=== PATIENT | female | born 1950 | race Caucasian/White ===

== ENCOUNTER → 2016-03-16 | Outpatient (CLI) | payer BC ==
[~2016-03-16] MED LIST: CHOLTAB3 PO; IBUP-1050 PO; PRED-301 PO
[2016-03-16 13:45] LABS: BLOOD UREA NITROGEN 19 mg/dl (7-18); BUN/CREATININE RATIO 19.5 (10-20); CALCIUM 9.4 mg/dl (8.5-10.1); CARBON DIOXIDE 31 mmol/L (21-32); CHLORIDE 101 mmol/L (98-107); CHOLESTEROL 247 mg/dl (0-200); CREATININE 0.95 mg/dl (0.60-1.20); GLUCOSE 101 mg/dl (70-99); POTASSIUM 3.7 mmol/L (3.5-5.1); SODIUM 141 mmol/L (136-145); TRIGLYCERIDES 152 mg/dl (0-150); VERY LOW DENSITY LIPOPROT CALC 30 mg/dl
[2016-03-16 13:48] LABS: CHOLESTEROL/HDL RATIO 3.5; HDL CHOLESTEROL 70 mg/dl; LDL CHOLESTEROL CALCULATED 147 mg/dl
== END | disposition home or self-care (01) ==
LOC: C.LABBC 11:36
PROVIDERS: ATTEND Family Medicine
DX: E78.00 Pure hypercholesterolemia, unspecified (principal); I10 Essential (primary) hypertension; R74.8 Abnormal levels of other serum enzymes; N18.3 Chronic kidney disease, stage 3 (moderate)

== ENCOUNTER → 2016-07-19 | Outpatient (CLI) | payer BC ==
[2016-07-19 13:52] LABS: ALT/SGPT 60 U/L (12-78); AST/SGOT 33 U/L (15-37); CREATININE 0.99 mg/dl (0.60-1.20)
[2016-07-19 13:55] LABS: ALKALINE PHOSPHATASE 74 U/L (45-117)
== END | disposition home or self-care (01) ==
LOC: C.LABBC 11:05
PROVIDERS: ATTEND Internal Medicine
DX: M33.20 Polymyositis, organ involvement unspecified (principal); Z79.1 Long term (current) use of non-steroidal anti-inflammatories (NSAID)

== ENCOUNTER → 2016-11-25 | Outpatient (CLI) | payer BC ==
--- NOTE | 2016-11-26 13:43 | MAMMOGRAPHY REPORT ---
BILATERAL DIGITAL SCREENING MAMMOGRAM TOMOSYNTHESIS WITH CAD: 11/25/2016 CLINICAL HISTORY: Routine screening. Patient has no complaints. TECHNIQUE: Breast tomosynthesis in addition to standard 2D mammography was performed. Current study was also evaluated with a Computer Aided Detection (CAD) system. COMPARISON: Comparison is made to exams dated: 11/19/2015 mammogram, 10/30/2014 mammogram, 10/29/2013 mammogram, 09/28/2012 mammogram, 08/04/2011 mammogram, and 07/30/2010 mammogram - [facility]. BREAST COMPOSITION: There are scattered areas of fibroglandular density in both breasts. FINDINGS: No suspicious masses, calcifications, or areas of architectural distortion are noted in ei ther breast. There has been no significant interval change compared to prior exams. Bilateral benign -appearing asymmetries/masses are stable compared to prior exams. Scattered bilateral benign-appeari ng calcifications are also stable. IMPRESSION: ACR BI-RADS CATEGORY 2: BENIGN There is no mammographic evidence of malignancy. A 1 year screening mammogram is recommended. The pa tient will receive written notification of the results. Approximately 10% of breast cancers are not detected with mammography. A negative mammographic report should not delay biopsy if a clinically suggestive mass is present. Lizzy Kwong M.D. /:11/25/2016 15:16:32 Apprentice Painter Hand: Radhika Guerra, [facility] letter sent: Normal 1/2 BI-RADS Code: ACR BI-RADS Category 2: Benign
== END | disposition home or self-care (01) ==
LOC: C.MAMM 14:50
PROVIDERS: ATTEND Family Medicine
DX: Z12.31 Encounter for screening mammogram for malignant neoplasm of breast (principal)

== ENCOUNTER → 2017-03-24 | Outpatient (CLI) | payer BC ==
[2017-03-24 14:12] LABS: BLOOD UREA NITROGEN 21 mg/dl (7-18); CALCIUM 9.6 mg/dl (8.5-10.1); CARBON DIOXIDE 31 mmol/L (21-32); CREATININE 1.03 mg/dl (0.60-1.20); GLUCOSE 114 mg/dl (70-99); POTASSIUM 3.6 mmol/L (3.5-5.1); SODIUM 139 mmol/L (136-145)
[2017-03-24 14:18] LABS: CHOLESTEROL 245 mg/dl (0-200); LDL CHOLESTEROL CALCULATED 143 mg/dl
== END | disposition home or self-care (01) ==
LOC: C.LABBC 10:37
PROVIDERS: ATTEND Family Medicine
DX: E78.00 Pure hypercholesterolemia, unspecified (principal); I12.9 Hypertensive chronic kidney disease with stage 1 through stage 4 chronic kidney disease, or unspecified chronic kidney disease; N18.3 Chronic kidney disease, stage 3 (moderate)

== ENCOUNTER 2017-05-19 05:26 | Inpatient (IN) | payer BC, OTHER ==
[2017-04-19 13:21] VITALS: BMI 31.0
--- NOTE | 2017-04-19 14:10 | PAT Medication Instructions ---
Service Date Apr 19, 2017. Current Home Medication List Acetaminophen (Tylenol), 1,000 MG PO PRN Amlodipine (Norvasc), 5 MG PO QAM Aspirin (Aspirin Ec), 81 MG PO QAM Cholecalciferol (Vitamin D3), 5,000 TAB PO QAM Meloxicam (Mobic), 15 MG PO QAM Prednisone (Prednisone), 5 MG PO QAM Triamterene/Hctz (Dyazide 37.5MG/25MG), 1 TAB PO QAM Medication Instructions For Your Scheduled Surgery - Hold the following medications 7 days prior to surgery per your surgeon's instructions: Meloxicam (Mobic), 15 MG PO QAM - Hold the following medications the morning of surgery: Cholecalciferol (Vitamin D3), 5,000 TAB PO QAM Triamterene/Hctz (Dyazide 37.5MG/25MG), 1 TAB PO QAM - Take the following medications the morning of surgery with a sip of water: Acetaminophen (Tylenol), 1,000 MG PO PRN (if needed, can be taken up to four hours before surgery) Amlodipine (Norvasc), 5 MG PO QAM Aspirin (Aspirin Ec), 81 MG PO QAM Prednisone (Prednisone), 5 MG PO QAM - Take the following medications as scheduled the night before surgery: Acetaminophen (Tylenol), 1,000 MG PO PRN (if needed) If you have any questions please call us at [phone] or [phone] or [phone]
--- NOTE | 2017-04-19 15:14 | DIAGNOSTIC IMAGING REPORT ---
CHEST 2 VIEWS ROUTINE HISTORY: 66 years-old Female PAT preoperative exam. No acute chest complaints COMPARISON: Chest CT 01/08/2009 TECHNIQUE: PA and lateral views of the chest FINDINGS: Cardiomediastinal and hilar silhouettes are within normal limits. Atherosclerosis of the aorta. There is no pneumothorax, pleural effusion, focal airspace consolidation or overt pulmonary edema. The bones of the chest appear grossly intact. Degenerative changes are seen within the shoulders and spine. IMPRESSION: No acute process. The above report was generated using voice recognition software. It may contain grammatical, syntax or spelling errors. Electronically signed by: Gideon Da Silva M.D. 04/19/2017 3:13 PM Dictated Date/Time: 04/19/2017 3:12 PM
[2017-04-19 15:20] LABS: BASO % 0.3 %; BASO ABS # 0.03 K/uL (0-0.2); EOS % 0.9 %; EOS ABS # 0.08 K/uL (0-0.5); HEMATOCRIT 38.3 % (37-47); HEMOGLOBIN 13.3 g/dL (12.0-16.0); IG# 0.02 K/uL (0.00-0.02); LYMPH % 15.8 %; LYMPH ABS # 1.39 K/uL (1.2-3.4); MEAN CELL VOLUME 97.7 fL (80-100); MEAN CORPUSCULAR HEMOGLOBIN 33.9 pg (25-34); MEAN CORPUSCULAR HGB CONC 34.7 g/dl (32-36); MEAN PLATELET VOLUME 10.3 fL (7.4-10.4); MONO % 4.9 %; MONO ABS # 0.43 K/uL (0.11-0.59); NEUT % 77.9 %; NEUT ABS # 6.84 K/uL (1.4-6.5); PLATELET COUNT 220 K/uL (130-400); RED CELL DISTRIBUTION WIDTH CV 12.9 % (11.5-14.5); RED CELL DISTRIBUTION WIDTH SD 45.7 fL (36.4-46.3); WHITE BLOOD COUNT 8.79 K/uL (4.8-10.8)
--- NOTE | 2017-04-19 15:23 | DIAGNOSTIC IMAGING REPORT ---
CERVICAL SPINE 3 VIEWS CLINICAL HISTORY: Preoperative examination. Rheumatoid arthritis. FINDINGS: Lateral views of the cervical spine in the neutral, flexion, and extension positions are obtained. No prior studies are available for comparison at the time of dictation. The skeletal structures are osteopenic. There is no radiographic evidence of fracture or subluxation on these lateral views. The spinolaminar line is preserved. The atlantodental articulation appears maintained noting productive degenerative change. Vertebral body height is maintained throughout the cervical spine. There is minimal anterolisthesis at C3-C4. This is slightly increased in flexion. Alignment is otherwise preserved. Anterior osteophytes are seen throughout. Advanced disc space narrowing and endplate sclerosis is identified at C4-C5. A large posterior disc osteophyte complex at this level likely contributes to acquired compromise of the central canal. Only mild disc space narrowing is seen at the remaining cervical levels. The prevertebral soft tissues are normal as imaged. IMPRESSION: 1. There is minimal anterolisthesis at C3-C4, greatest in flexion. 2. No acute bony abnormality is suggested on these lateral views. 3. Spondylotic change as above. Dictated: 04/19/2017 3:12 PM Transcribed: 04/19/2017 3:23 PM Lolita Electronically signed by: Umang Alvarez M.D. 04/19/2017 3:26 PM Dictated Date/Time: 04/19/2017 3:12 PM
[2017-04-19 15:33] LABS: PTT PATIENT 25.1 SECONDS (21.0-31.0)
[2017-04-19 15:57] LABS: ALBUMIN 4.1 gm/dl (3.4-5.0); CALCIUM 9.3 mg/dl (8.5-10.1); CREATININE 0.92 mg/dl (0.60-1.20); POTASSIUM 3.6 mmol/L (3.5-5.1)
[2017-04-20 05:41] LABS: HEMOGLOBIN A1C 5.6 % (4.5-5.6)
--- NOTE | 2017-05-05 12:21 | HISTORY & PHYSICAL EXAMINATION ---
DATE OF ADMISSION: 05/19/2017 CHIEF COMPLAINT: Right hip pain. HISTORY OF PRESENT ILLNESS: Balbina is a 66-year-old female with a more than 6-month history of right hip pain. The patient rates her pain as a 7/10. She has pain with her daily activities. She has limited standing and walking tolerance. Pain is worse with weightbearing. The patient has had Tylenol, injections and NSAIDS without relief. She is unable to exercise due to pain. She has failed conservative treatment and is scheduled for a right hip replacement. PAST MEDICAL HISTORY: Hypertension, hypercholesterolemia, and acid reflux. She denies heart disease, diabetes or DVT. PAST SURGICAL HISTORY: Appendectomy, cholecystectomy, carpal tunnel, bunionectomy and tubal ligation. SOCIAL HISTORY: The patient denies alcohol or tobacco use. She lives in a single zack home. She lives alone and is retired; however, her sister is planning to come and stay with her postoperatively. FAMILY HISTORY: Negative for DVT. MEDICATIONS: Prednisone 5 mg daily, ibuprofen 200 mg p.r.n., triamterene 37.5/25 daily, amlodipine 5 mg daily, lansoprazole 15 mg daily, vitamin D3 5000 units daily, biotin 5 mg, aspirin 81 mg, and Mobic 15 mg. ALLERGIES: AZATHIOPRINE, LISINOPRIL, AZITHROMYCIN AND CLOPIDOGREL. REVIEW OF SYSTEMS: See HPI. Ten other systems reviewed, all negative. PHYSICAL EXAMINATION: VITAL SIGNS: Height 5 feet 3 inches, weight 170 pounds, BMI 30. GENERAL: This is a well-developed, well-nourished female who is alert and oriented x3. Mood and affect are appropriate. HEENT: Normocephalic, atraumatic. Mucous membranes are moist and intact. NECK: Supple without lymphadenopathy. HEART: Regular rate and rhythm without murmurs, rubs or gallops. LUNGS: Clear to auscultation without wheezes or rhonchi. ABDOMEN: Soft and nontender. Bowel sounds are equal and active. EXTREMITIES: No ecchymosis, redness or warmth. Log roll of the hip reproduces pain in the groin. Range of motion is decreased. She is neurovascularly intact with +5/5 strength. X-RAY EXAMINATION: AP and lateral views show joint space narrowing and osteophyte formation. IMPRESSION: Degenerative joint disease. PLAN: The patient will be admitted for a right total hip arthroplasty. We will plan on aspirin for DVT prophylaxis. The patient will have [facility] for home physical therapy. She will also require steroid prep preoperatively. STACY
[~2017-05-19] VITALS: Ht 157.5 cm; Wt 77.6 kg
[2017-05-19] VITALS (9 sets, daily range): BP systolic 114–159; BP diastolic 64–112; PULSE 18–90; TEMP 36.8–37.1; O2SAT 94–98; Ht 157.5 cm; Wt 77.6 kg
[~2017-05-19 05:26] MED LIST changes: +ACET-1256 PO; +AMLO-110 PO; +ASPI81TA28 PO; +CHOL1000 PO; -CHOLTAB3 PO; -IBUP-1050 PO; +MELO7.5T5 PO; +TRIA37.5 PO
[2017-05-19] MEDS ORDERED: LACTATED RINGER'S 1000ML 1,000 ML IV SCH (06:00)
[2017-05-19] MEDS ORDERED: LACTATED RINGER'S 1000ML 500 ML IV SCH (06:00)
[2017-05-19] MEDS ORDERED: FAMOTIDINE 20 MG TAB PO SCH (06:00)
[2017-05-19] MEDS ORDERED: METOCLOPRAMIDE HCL 10 MG TAB PO SCH (06:00)
[2017-05-19] MEDS ORDERED: TRANEXAMIC ACID INJ 1,000 MG x 2 Bags IV SCH ×2 (06:00)
[2017-05-19] MEDS ORDERED: DEXAMETHASONE 4 MG TAB PO SCH (06:00)
[2017-05-19] MEDS ORDERED: CEFAZOLIN 1000MG IV PUSH 7.5 ML IV SCH (06:00)
[2017-05-19] MEDS ORDERED: ACETAMINOPHEN 500 MG TAB PO SCH (06:00)
[2017-05-19] MEDS ORDERED: CeleBREX 200 MG CAP PO SCH (06:00)
[2017-05-19] MEDS ORDERED: ROPIVACAINE 5MG/ML 30 ML 150 MG, BUPIVACAINE 0.5% MPF INJ 30 ML, EpINEphrine HCL INJ 0.... INFIL SCH ×8 (06:00)
[2017-05-19] MEDS ORDERED: MIDAZOLAM HCL 1 MG/ML 2ML VIAL ONE ×2 (06:21)
[2017-05-19] MEDS ORDERED: PROPOFOL IV EMULSION 10 MG/ML 20 ML VIAL IV ONE (06:21)
[2017-05-19] MEDS ORDERED: LIDOCAINE HCL 2% 2 ML VIAL (20MG/ML) ONE (06:21)
[2017-05-19] MEDS ORDERED: BUPIVACAINE 0.5 % 5 MG/1 ML PF 10ML VIAL ONE (06:28)
[2017-05-19] MEDS ORDERED: POVIDONE-IODINE OP SOLN 30 ML BTL ONE (06:39)
[2017-05-19] MEDS ORDERED: ORTHO JOINT ANESTHETIC ONE (06:39)
[2017-05-19] MEDS ORDERED: BACITRACIN 50000 UNIT VIAL ONE (06:39)
--- NOTE | 2017-05-19 06:53 | History & Physical Bridge Note ---
H&P Re-Evaluation Bridge Note: I have examined the patient, reviewed the History & Physical and in the interval since the performance of the History & Physical I have noted the following changes of clinical significance: No changes noted
[2017-05-19] MEDS ORDERED: NURSING VERBAL MED ORDER STA (06:57)
[2017-05-19] MEDS ORDERED: METHYLPREDNISOLONE 125 MG VIAL IV ONE (07:15)
[2017-05-19] MEDS ORDERED: ONDANSETRON INJ 2 MG/ML 2 ML VIAL IV PRN ×2 (08:15→08:45)
[2017-05-19] MEDS ORDERED: HYDROmorphone INJ 2 MG/ML SYR/VIAL IV PRN (08:15)
[2017-05-19] MEDS ORDERED: ATROPINE SULFATE 0.1 MG/ML 5ML SYR IV PRN (08:15)
[2017-05-19] MEDS ORDERED: EpHEDrine SULFATE INJ 50 MG/ML AMP IV PRN (08:15)
[2017-05-19] MEDS ORDERED: KETOROLAC TROMETHAMINE 30 MG/ML VIAL IV. PRN (08:15)
[2017-05-19] MEDS ORDERED: PHENYLEPHRINE 100MCG/ML 5ML SYR IV PRN (08:15)
[2017-05-19] MEDS ORDERED: OXYCODONE HCL IR 5 MG TAB (IMMEDIATE RELEASE) PO PRN (08:45)
[2017-05-19] MEDS ORDERED: ZOLPIDEM TARTRATE 5 MG TAB PO PRN (08:45)
[2017-05-19] MEDS ORDERED: MoRPHine SULFATE 2 MG/ML CARP IV PRN (08:45)
[2017-05-19] MEDS ORDERED: METOCLOPRAMIDE HCL INJ 5 MG/ML 2 ML VIAL IV PRN (08:45)
[2017-05-19] MEDS ORDERED: ALUMINUM/MAGNESIUM/SIMETH (MAALOX MAX) 30 ML UDC PO PRN (08:45)
[2017-05-19] MEDS ORDERED: MAGNESIUM HYDROXIDE SUSP 30 ML UDC PO PRN (08:45)
[2017-05-19] MEDS: PANTOprazole SOD 40 MG TAB PO SCH (09:00)
[2017-05-19] MEDS: DOCUSATE SODIUM 100 MG CAP PO SCH ×2 (09:00→21:42)
[2017-05-19] MEDS: TRIAMTERENE/HCTZ 37.5/25MG CAP PO SCH (09:00)
[2017-05-19] MEDS: MULTIVITAMIN TAB PO SCH (09:00)
--- NOTE | 2017-05-19 09:20 | OPERATIVE REPORT ---
DATE OF OPERATION: 05/19/2017 PREOPERATIVE DIAGNOSIS: Osteoarthritis, right hip. POSTOPERATIVE DIAGNOSIS: Osteoarthritis, right hip. PROCEDURE: Right Alexx total hip arthroplasty. SURGEON: Dr. Arnold. DIRECTOR OF CORPORATE STRATEGY: Danny Preciado PA-C. ANESTHESIA: Spinal. COMPLICATIONS: None. IMPLANTS USED: Acetabular reamer used 54, acetabular shell 54, femoral stem a size 4, femoral head -0.5 cm x 36 ceramic. DESCRIPTION OF PROCEDURE: Following induction of adequate spinal anesthesia, the patient was placed in left lateral decubitus position and right Alna-Langenbeck incision was made. Subcutaneous tissue was sharply dissected. Electrocautery used for hemostasis. The fascia was incised throughout the length of the wound and a Rivera scissor placed beneath the short external rotators. The pyriformis was tagged with #1 Vicryl. The short external rotators were divided from the posterior aspect of the femur using electrocautery. These were swept posteriorly. A T-capsulotomy incision was made and the hip was dislocated using a combination of flexion, adduction, and internal rotation. Exposure of the femoral neck with old-style Hohmann and a blunt Hohmann was carried out and a femoral rasp was utilized as a guide for making the appropriate level femoral neck cut. This bone fragment was removed and reserved on the back table. Next, attention was turned to the acetabulum where bone hook was used to retract the femur while the offset retractors were placed anterior and posteriorly. A double-angled Hohmann was placed in superior and anterior position exposing the acetabulum nicely. Acetabular labrum as well as posterior capsule elements were removed using a long knife and a long pickup. Fovea centralis was cleared of all soft tissue. Sequential reamings were carried up to a 54 and decision was made to proceed with impaction of a 54 trabecular metal cup. This was impacted and held using a single 35 mm bone screw. The acetabular liner was placed with 15 of elevated posterior wall in the superior and posterior position. Next, attention was turned to the femoral portion of the case where a Bovie and pickup was used to further clear short external rotators from their insertion on the femur. Box osteotome was used to gain access to the femoral canal and the T-handled rasp and a rattail rasp were used to further open and lateral the canal. Sequentially raspings were carried up to a 4 which gave good fit and fill of the proximal femur. A trial reduction was carried out and a 132 degree femoral neck component was chosen as the size to be used. A -0.5 cm x 36 ceramic femoral head was impacted into position, +0 head was utilized. The trial reduction was stable in all degrees of rotation with no [id number] impingement. The hip was dislocated. The trial components were removed and the final femoral stem, neck, and femoral head combination were assembled on the back table and impacted into position. Hip was relocated. Range of motion checked once again successful and the wound was irrigated. The pyriformis repaired to the greater trochanter using #1 Vicryl [id number]-du-pulip suture. A Hemovac drain was placed and the fascia was closed using #1 Vicryl, subcutaneous tissue was closed using 0 Dexon, and skin was closed with xochitl. Sterile dressing of Adaptic, 4 x 4's, ABDs, and foam tape was applied. The patient tolerated the procedure well. Due to the complex nature of the procedure, the entire surgery was performed with the operational assistance of Danny Preciado PA-C. The assistant manager, under direct supervision, was involved in the actual performance of all aspects of the surgical procedure including hemostasis, tissue retraction and incision, instrument management, patient positioning, and wound closure. DISPOSITION: Recovery room, stable. I attest to the content of the Intraoperative Record and any orders documented therein. Any exception s are noted below.
--- NOTE | 2017-05-19 10:04 | DIAGNOSTIC IMAGING REPORT ---
SINGLE VIEW PELVIS; SINGLE VIEW RIGHT HIP CLINICAL HISTORY: Postoperative examination. FINDINGS: An AP portable view of the hips and pelvis with a crosstable lateral portable view of the right hip are obtained. A bipolar right hip arthroplasty is in near-anatomic alignment. At least 2 cortical lag screws transfix the acetabular cup. No acute fracture is identified. There are expected postoperative changes overlying the right hip including subcutaneous gas, a surgical drain, and soft tissue swelling. Moderate to advanced arthritic changes noted in the left hip. A bone island is noted in the left femoral head. IMPRESSION: Expected postoperative findings status post right hip arthroplasty. No acute fracture is seen. Electronically signed by: Umang Alvarez M.D. 05/19/2017 10:03 AM Dictated Date/Time: 05/19/2017 10:01 AM
--- NOTE | 2017-05-19 10:16 | Anesthesiology Progress Note ---
Anesthesia Post Op Note Date & Time May 19, 2017 at 10:15 Vital Signs Pain Intensity: 0 Vital Signs Past 12 Hours Date Time Temp Pulse Resp B/P (MAP) Pulse Ox O2 Delivery O2 Flow Rate FiO2 05/19/17 09:55 36.6 126/69 05/19/17 09:51 89 15 05/19/17 09:51 90 15 100 05/19/17 09:50 127/74 05/19/17 09:46 86 16 99 05/19/17 09:46 86 16 05/19/17 09:45 126/70 05/19/17 09:41 86 19 99 05/19/17 09:41 86 19 05/19/17 09:40 84 17 05/19/17 09:40 85 17 129/72 99 05/19/17 09:35 88 17 138/78 100 05/19/17 09:35 88 17 05/19/17 09:31 136/73 05/19/17 09:30 87 18 05/19/17 09:30 87 18 100 05/19/17 09:25 88 18 05/19/17 09:25 88 18 135/82 99 05/19/17 09:20 93 15 100 05/19/17 09:20 93 15 05/19/17 09:16 135/88 05/19/17 09:15 92 24 05/19/17 09:15 91 24 100 05/19/17 09:10 86 18 05/19/17 09:10 86 18 147/80 100 05/19/17 09:05 86 19 05/19/17 09:05 89 19 133/78 100 05/19/17 09:00 91 16 148/81 100 05/19/17 09:00 92 16 05/19/17 08:55 91 16 149/80 100 05/19/17 08:55 91 16 05/19/17 08:50 95 14 152/84 97 05/19/17 08:50 95 14 05/19/17 08:46 151/80 05/19/17 08:45 97 20 97 05/19/17 08:45 97 20 05/19/17 08:44 151/83 05/19/17 08:40 36.5 92 16 151/83 98 Nasal Cannula 3 05/19/17 05:47 36.9 18 18 159/112 97 Room Air Notes Mental Status: alert / awake / arousable, participated in evaluation Pt Amnestic to Procedure: Yes Nausea / Vomiting: adequately controlled Pain: adequately controlled Airway Patency, RR, SpO2: stable & adequate BP & HR: stable & adequate Hydration State: stable & adequate Anesthetic Complications: no major complications apparent
[2017-05-19] MEDS ORDERED: MoRPHine SULFATE 4 MG/ML 1 ML CARP\\VIAL IV PRN (10:45)
[2017-05-19] MEDS: D5W AND 1/2NSS + 20MEQ KCL 1,000 ML IV SCH ×2 (11:34→21:43)
[2017-05-19] MEDS: FERROUS GLUCONATE 324 MG TAB PO SCH ×2 (12:58→17:00)
[2017-05-19] MEDS: ACETAMINOPHEN 500 MG TAB PO SCH ×2 (13:38→21:44)
[2017-05-19] MEDS: CEFAZOLIN IV 1,000 MG in SYRINGE 0 ML IV SCH ×2 (17:00→23:29)
[2017-05-19] MEDS: KETOROLAC TROMETHAMINE 15 MG/ML VIAL IV. PRN (19:14)
[2017-05-19] MEDS: ASPIRIN 81 MG ECTAB PO SCH (21:44)
[2017-05-20 02:26] VITALS: BP 149/82; PULSE 79; TEMP 36.8; O2SAT 97
[2017-05-20] MEDS: KETOROLAC TROMETHAMINE 15 MG/ML VIAL IV. PRN (04:43)
[2017-05-20] MEDS: ACETAMINOPHEN 500 MG TAB PO SCH ×2 (05:33→14:29)
[2017-05-20] MEDS: D5W AND 1/2NSS + 20MEQ KCL 1,000 ML IV SCH (07:00)
[2017-05-20 07:26] LABS: BASO % 0.1 %; BASO ABS # 0.01 K/uL (0-0.2); EOS % 0.1 %; EOS ABS # 0.01 K/uL (0-0.5); HEMATOCRIT 36.1 % (37-47); HEMOGLOBIN 12.6 g/dL (12.0-16.0); IG# 0.06 K/uL (0.00-0.02); LYMPH % 7.3 %; LYMPH ABS # 1.46 K/uL (1.2-3.4); MEAN CELL VOLUME 98.1 fL (80-100); MEAN CORPUSCULAR HEMOGLOBIN 34.2 pg (25-34); MEAN CORPUSCULAR HGB CONC 34.9 g/dl (32-36); MEAN PLATELET VOLUME 10.2 fL (7.4-10.4); MONO % 7.9 %; MONO ABS # 1.58 K/uL (0.11-0.59); NEUT % 84.3 %; NEUT ABS # 16.78 K/uL (1.4-6.5); PLATELET COUNT 242 K/uL (130-400); RED CELL DISTRIBUTION WIDTH CV 12.8 % (11.5-14.5); RED CELL DISTRIBUTION WIDTH SD 45.5 fL (36.4-46.3)
--- NOTE | 2017-05-20 07:51 | Orthopedic Progress Note ---
Orthopedic Progress Note Date of Service May 20, 2017. Subjective Post OP Day: 1 Reports: feeling well Objective N/V intact, dressing C/D/I (Hemovac d/c'd), toes mobile Date Time Temp Pulse Resp B/P (MAP) Pulse Ox O2 Delivery O2 Flow Rate FiO2 05/20/17 07:22 Room Air 05/20/17 02:26 36.8 79 20 149/82 (104) 97 Room Air 05/19/17 23:30 Room Air 05/19/17 22:46 36.8 75 16 129/64 (85) 97 Room Air 05/19/17 19:06 37.1 85 18 128/80 (96) 96 Room Air 05/19/17 15:30 Room Air 05/19/17 15:26 37.1 86 18 114/70 (85) 96 Room Air 05/19/17 13:05 86 16 137/75 (95) 97 Room Air 05/19/17 12:05 79 16 126/68 (87) 98 2.0 05/19/17 11:07 36.9 78 16 116/72 (87) 98 2.0 05/19/17 10:35 83 16 119/77 (91) 97 2.0 05/19/17 10:05 36.9 90 18 134/77 (96) 94 Nasal Cannula 2.0 05/19/17 10:05 94 Nasal Cannula 2.0 05/19/17 10:05 94 Nasal Cannula 2.0 05/19/17 09:55 36.6 126/69 05/19/17 09:51 89 15 05/19/17 09:51 90 15 100 05/19/17 09:50 127/74 05/19/17 09:46 86 16 99 05/19/17 09:46 86 16 05/19/17 09:45 126/70 05/19/17 09:41 86 19 99 05/19/17 09:41 86 19 05/19/17 09:40 84 17 05/19/17 09:40 85 17 129/72 99 05/19/17 09:35 88 17 138/78 100 05/19/17 09:35 88 17 05/19/17 09:31 136/73 05/19/17 09:30 87 18 05/19/17 09:30 87 18 100 05/19/17 09:25 88 18 4/12/18 09:25 88 18 135/82 99 05/19/17 09:20 93 15 100 05/19/17 09:20 93 15 05/19/17 09:16 135/88 05/19/17 09:15 92 24 05/19/17 09:15 91 24 100 05/19/17 09:10 86 18 05/19/17 09:10 86 18 147/80 100 05/19/17 09:05 86 19 05/19/17 09:05 89 19 133/78 100 05/19/17 09:00 91 16 148/81 100 05/19/17 09:00 92 16 05/19/17 08:55 91 16 149/80 100 05/19/17 08:55 91 16 05/19/17 08:50 95 14 152/84 97 05/19/17 08:50 95 14 05/19/17 08:46 151/80 05/19/17 08:45 97 20 97 05/19/17 08:45 97 20 05/19/17 08:44 151/83 05/19/17 08:40 36.5 92 16 151/83 98 Nasal Cannula 3 Laboratory Results 24 Hours: Test 05/20/17 07:11 White Blood Count 19.90 K/uL Red Blood Count 3.68 M/uL Hemoglobin 12.6 g/dL Hematocrit 36.1 % Mean Corpuscular Volume 98.1 fL Mean Corpuscular Hemoglobin 34.2 pg Mean Corpuscular Hemoglobin Concent 34.9 g/dl Platelet Count 242 K/uL Mean Platelet Volume 10.2 fL Neutrophils (%) (Auto) 84.3 % Lymphocytes (%) (Auto) 7.3 % Monocytes (%) (Auto) 7.9 % Eosinophils (%) (Auto) 0.1 % Basophils (%) (Auto) 0.1 % Neutrophils # (Auto) 16.78 K/uL Lymphocytes # (Auto) 1.46 K/uL Monocytes # (Auto) 1.58 K/uL Eosinophils # (Auto) 0.01 K/uL Basophils # (Auto) 0.01 K/uL Assessment & Plan Assessment: 66 yo female stable POD #1 s/p right NITHYA Plan: 1. Med management 2. DVT prophylaxis- ASA, SCDs 3. PT/OT 4. D/C planning- home w/ HH
[2017-05-20] MEDS ORDERED: RXC5 PO (07:53)
[2017-05-20] MEDS ORDERED: ACET-24 PO (07:53)
[2017-05-20] MEDS ORDERED: CLB200 PO (07:53)
[2017-05-20] MEDS ORDERED: ASPI-320 PO (07:53)
--- NOTE | 2017-05-20 07:55 | Discharge Instructions ---
Discharge Instructions Date of Service May 20, 2017. Admission Reason for Admission: Right Hip Osteoarthritis Discharge Discharge Diagnosis / Problem: right hip arthritis Discharge Goals Goal(s): Decrease discomfort, Improve function Activity Recommendations Activity Limitations: as noted below Weightbearing Status: Right weightbearing (as tolerated) . Instructions / Follow-Up Instructions / Follow-Up ACTIVITY RECOMMENDATIONS: SELF CARE INSTRUCTIONS AFTER TOTAL HIP REPLACEMENT Until the incision and soft tissues around your hip have healed, there is a possibility that the hip prosthesis could dislocate. A. Observe the following precautions to prevent dislocation: 1. Don't bend your hip greater than 90 degrees. 2. Avoid crossing your legs or ankles while standing or lying. 3. Sit with your feet placed 6 inches apart. 4. When sitting, keep your knees below your hips. Sit on a firm surface, avoid deep, soft chairs and couches. Use an elevated toilet seat in the bathroom. 5. Don't bend over at the waist. Use a long handled shoehorn and a sock aid to help you put on your shoes and socks. A chief order dispatcher can help you sweet pickled fruit maker objects that are too high or too low to reach. 6. Keep car riding to a minimum for at least one month after surgery. B. Your balance may be shaky for a while. Use crutches or a walker until directed by your doctor. C. Use hand rails when walking on stairs. D. Wear low heeled shoes with non-slip soles. E. Be sure that your floors are free of things that could trip you - throw rugs , electrical cords, small objects. Avoid wet and waxed floors, especially with crutches and canes. F. Try to walk several times a day with rest periods between. G. Continue with all the exercises taught to you in the hospital. Again, make walking a part of your daily routine. SPECIAL CARE INSTRUCTIONS: VERY IMPORTANT TO READ AND REVIEW A. You may still be at risk for phlebitis and blood clots. 1. Wear surgical stockings (ETHAN hose) for 2 weeks after surgery to improve circulation and reduce swelling. 2. Take Aspirin 81mg twice daily for 4 weeks or as directed by your doctor. This is your blood thinner. 3. High risk patients may be prescribed a stronger blood thinner if necessary. 4. If you are on Coumadin normally, your family doctor/manager performance should monitor your blood work. Expect a phone call the day of or the day after bloodwork is drawn to adjust your dosage. B. You must take antibiotics before having dental work, bladder, bowel and other surgery. Your doctor will provide you with a permanent card to carry describing precautions. C. Call [facility] if you have a fever, redness or swelling around the incision, cloudy drainage from incision, or sudden increase in pain in your hip, not relieved by your regular pain medication. D. Please call the office at if you have any concerns or questions about your operation or recovery. * YOU MAY SHOWER, NO TUB BATHS UNTIL CLEARED BY YOUR DOCTOR. * WEAR ETHAN HOSE 20 HOURS PER DAY FOR 2 WEEKS. * YOU SHOULD USE A WALKER OR CRUTCHES FOR 2-4 WEEKS. THIS WILL HELP PREVENT STRAIN ON YOUR HIP MUSCLE AND ALLOW IT TO HEAL PROPERLY. YOU MAY WEAN TO A CANE TOLERATED. * MOST PATIENTS WILL HAVE HOME NURSING FOR THERAPY. IF YOU DECIDE TO DO OUTPATIENT PHYSICAL THERAPY, PLEASE SCHEDULE THIS 3 TIMES PER WEEK. Silverlon- This is a large adhesive bandage that contains silver ions. This helps your incision heal by fighting off bacteria and protecting it from the outside environment. You are permitted to shower with this dressing. This will remain on your incision for 7 days and then should be removed. Some visible blood or drainage through the dressing window is normal. If there is significant drainage or leaking noted before the 7 days notify your doctor's office immediately. Once removed, keep incision clean and dry. If there is any drainage or redness noted, please call your surgeon. When removing Silverlon, maintain underlying Zipline closure until follow-up with MD. FOLLOW UP VISIT: If appointment is not already scheduled: Please call [facility] to make a follow-up appointment for 2 weeks after your surgery at . Current Hospital Diet Patient's current hospital diet: Regular Diet Discharge Diet Recommended Diet: Regular Diet Procedures Procedures Performed: Right total hip arthroplasty Pending Studies Studies pending at discharge: no Laboratory Results Hemoglobin A1c Test 04/19/17 14:23 Range/Units Estimated Average Glucose 114 mg/dl Hemoglobin A1c 5.6 4.5-5.6 % Lipid Panel Test 03/24/17 10:43 Range/Units Triglycerides Level 211 H 0-150 mg/dl Cholesterol Level 245 H 0-200 mg/dl HDL Cholesterol 60 mg/dl Cholesterol/HDL Ratio 4.1 LDL Cholesterol, Calculated 143 mg/dl Medical Emergencies . Who to Call and When: Medical Emergencies: If at any time you feel your situation is an emergency, please call 911 immediately. . Non-Emergent Contact Non-Emergency issues call your: Surgeon Call Non-Emergent contact if: temperature is above 101.5, your pain is not controlled, wound has increased drainage, wound has increased redness . "Provider Documentation" section prepared by Danny Precaido PA-C. . [place] Drug Monitoring Program Search Results: patient reviewed within database, no issues identified
[2017-05-20 07:56] LABS: CALCIUM 8.7 mg/dl (8.5-10.1); CREATININE 1.03 mg/dl (0.60-1.20); POTASSIUM 3.5 mmol/L (3.5-5.1)
[2017-05-20 07:57] VITALS: BP 138/79; PULSE 73; TEMP 36.7; O2SAT 96
--- NOTE | 2017-05-20 08:02 | Anesthesiology Progress Note ---
Anesthesia Post Op Note Date & Time May 20, 2017 at 08:02 Vital Signs Pain Intensity: 3.0 Vital Signs Past 12 Hours Date Time Temp Pulse Resp B/P (MAP) Pulse Ox O2 Delivery O2 Flow Rate FiO2 05/20/17 07:57 36.7 73 16 138/79 (98) 96 Room Air 05/20/17 07:22 Room Air 05/20/17 02:26 36.8 79 20 149/82 (104) 97 Room Air 05/19/17 23:30 Room Air 05/19/17 22:46 36.8 75 16 129/64 (85) 97 Room Air Notes Mental Status: alert / awake / arousable, participated in evaluation Pt Amnestic to Procedure: Yes Nausea / Vomiting: adequately controlled Pain: adequately controlled Airway Patency, RR, SpO2: stable & adequate BP & HR: stable & adequate Hydration State: stable & adequate Neuraxial Anesthesia: was administered, sensory block resolved Anesthetic Complications: no major complications apparent
[2017-05-20] MEDS ORDERED: AMLODIPINE BESYLATE 5 MG TAB PO SCH (09:00)
[2017-05-20] MEDS: DOCUSATE SODIUM 100 MG CAP PO SCH (09:00)
[2017-05-20] MEDS: FERROUS GLUCONATE 324 MG TAB PO SCH ×2 (09:07→12:30)
[2017-05-20] MEDS: TRIAMTERENE/HCTZ 37.5/25MG CAP PO SCH (09:08)
[2017-05-20] MEDS: ASPIRIN 81 MG ECTAB PO SCH (09:09)
[2017-05-20] MEDS: MULTIVITAMIN TAB PO SCH (09:10)
[2017-05-20] MEDS: PANTOprazole SOD 40 MG TAB PO SCH (09:13)
[2017-05-20 13:40] VITALS: BP 138/79; PULSE 73; TEMP 36.7; O2SAT 96
[2017-05-20] MEDS ORDERED: CeleBREX 200 MG CAP PO SCH (21:00)
--- NOTE | 2017-06-01 23:10 | DISCHARGE SUMMARY ---
CHIEF COMPLAINT: Right hip pain. Please see complete history and physical exam. HOSPITAL COURSE: The patient underwent right total hip arthroplasty without complication. She tolerated the procedure well and was discharged to recovery room in stable condition. Her postop course relatively uneventful. Her postoperative pain was reasonably well controlled with a combination of spinal anesthesia, intraoperative joint injection, IV and oral pain medications. She was started on aspirin for DVT prophylaxis. She also utilized ETHAN stockings and SCDs for additional prophylaxis. Her H and H was stable and did not require transfusion. Her surgical drain was discontinued on postoperative day 1, her surgical dressing will remain in place for approximately 7 days postoperative. She tolerated postop physical therapy reasonably well. She was ambulating and transferring appropriately. She was observing all total hip precautions. She was discharged home on postop day 1. She will continue her physical therapy at home. She will continue her aspirin for DVT prophylaxis and follow up in our office in approximately 10-14 days for initial postop evaluation.
== END 2017-05-20 14:48 | disposition home health service (06) | DRG 470 ==
LOC: C.ACU 05:26 → C.MSW 06:45 → ENRESERV 09:32
PROC: 0SR901Z Replacement of Right Hip Joint with Metal Synthetic Substitute, Open Approach (ICD-10-PCS; principal; 2017-05-19 07:00)
DX: M16.11 Unilateral primary osteoarthritis, right hip (principal); I10 Essential (primary) hypertension; E78.5 Hyperlipidemia, unspecified; K21.9 Gastro-esophageal reflux disease without esophagitis

== ENCOUNTER → 2017-06-22 | Outpatient (CLI) | payer BC ==
[~2017-06-22] MED LIST changes: -ACET-1256 PO; +ACET-24 PO; +ASPI-320 PO; -ASPI81TA28 PO; +CLB200 PO; -MELO7.5T5 PO; +RXC5 PO
[2017-06-22 14:08] LABS: ALBUMIN 3.8 gm/dl (3.4-5.0); ALT/SGPT 41 U/L (12-78); AST/SGOT 26 U/L (15-37); CREATININE 1.06 mg/dl (0.60-1.20)
[2017-06-22 14:11] LABS: ALKALINE PHOSPHATASE 93 U/L (45-117); TOTAL PROTEIN 7.2 gm/dl (6.4-8.2)
== END | disposition home or self-care (01) ==
LOC: C.LABBC 10:22
PROVIDERS: ATTEND Internal Medicine
DX: M33.20 Polymyositis, organ involvement unspecified (principal)

== ENCOUNTER → 2017-09-20 | Outpatient (CLI) | payer BC ==
[~2017-09-20] MED LIST changes: -AMLO-110 PO; +AMLO5TAB3 PO
[2017-09-20 13:38] LABS: BLOOD UREA NITROGEN 24 mg/dl (7-18); CALCIUM 9.2 mg/dl (8.5-10.1); CARBON DIOXIDE 31 mmol/L (21-32); CHOLESTEROL 217 mg/dl (0-200); GLUCOSE 102 mg/dl (70-99); LDL CHOLESTEROL CALCULATED 124 mg/dl; POTASSIUM 3.7 mmol/L (3.5-5.1); SODIUM 139 mmol/L (136-145)
== END | disposition home or self-care (01) ==
LOC: C.LABBC 10:44
PROVIDERS: ATTEND Family Medicine
DX: E78.00 Pure hypercholesterolemia, unspecified (principal); I10 Essential (primary) hypertension

== ENCOUNTER 2022-05-17 11:35 | Inpatient (IN) ==
--- NOTE | 2022-04-29 09:10 | PAT Medication Instructions ---
Medication Instructions Date of Service April 29, 2022 Home Medications Medication Instructions Recorded fluticasone propionate 50 1 spray intranasal BID #30 mL 10/20/21 mcg/actuation nasal spray,suspension (Allergy Relief (fluticasone)) mupirocin 2 % topical ointment 1 applic topical BID #15 grams 10/22/21 amlodipine 5 mg tablet See Rx Instructions .Route 02/10/22 .COMPLEX #90 tabs prednisone 5 mg tablet See Rx Instructions .Route 02/10/22 .COMPLEX #90 tabs lansoprazole 15 mg capsule,delayed See Rx Instructions .Route 04/05/22 release .COMPLEX #90 caps triamterene 37.5 See Rx Instructions .Route 04/05/22 mg-hydrochlorothiazide 25 mg tablet .COMPLEX #90 tabs aspirin 81 mg tablet,delayed release (Aspir-Low) 81 mg PO QAM cholecalciferol (vitamin D3) 125 mcg (5,000 unit) tablet (Vitamin D3) 5,000 unit PO QAM ibuprofen 200 mg tablet 200 mg PO Q6H PRN Pain fluticasone propionate 50 mcg/actuation nasal spray,suspension (Allergy Relief (fluticasone)) 1 spray intranasal BID mupirocin 2 % topical ointment 1 applic topical BID amlodipine 5 mg tablet See Rx Instructions .Route .COMPLEX prednisone 5 mg tablet See Rx Instructions .Route .COMPLEX lansoprazole 15 mg capsule,delayed release See Rx Instructions .Route .COMPLEX triamterene 37.5 mg-hydrochlorothiazide 25 mg tablet See Rx Instructions .Route .COMPLEX ASK your surgeon for instructions ibuprofen 200 mg tablet 200 mg PO Q6H PRN Pain ASK your prescriber and surgeon aspirin 81 mg tablet,delayed release (Aspir-Low) 81 mg PO QAM DO NOT take the morning of surgery cholecalciferol (vitamin D3) 125 mcg (5,000 unit) tablet (Vitamin D3) 5,000 unit PO QAM triamterene 37.5 mg-hydrochlorothiazide 25 mg tablet See Rx Instructions .Route .COMPLEX Take morning of surgery With a small sip of water, OTHERWISE NOTHING TO EAT OR DRINK AFTER MIDNIGHT: fluticasone propionate 50 mcg/actuation nasal spray,suspension (Allergy Relief (fluticasone)) 1 spray intranasal BID amlodipine 5 mg tablet See Rx Instructions .Route .COMPLEX prednisone 5 mg tablet See Rx Instructions .Route .COMPLEX lansoprazole 15 mg capsule,delayed release See Rx Instructions .Route .COMPLEX Take evening before surgery fluticasone propionate 50 mcg/actuation nasal spray,suspension (Allergy Relief (fluticasone)) 1 spray intranasal BID Other Notes If you have any questions please call us at [phone] or [phone] or [phone] or [phone]
--- NOTE | 2022-05-03 10:59 | Anesthesiology Consultation ---
Date of Service May 03, 2022 Assessment & Plan (1) Encounter for pre-operative examination: - R with associated paresthesias if in certain positions for extended intervals; s/p L TSA 12/29: pt and surgeon requesting OR caution with shoulder positioning for upcoming surgery. Notation also placed on OR sheet. - Case discussed with Dr. Terry in detail, he advised pt is acceptable for planned surgery at current status from his standpoint and does not need further evaluation for anesthesia. Chart Review Chart Review: Acceptable Risk for Surgery and Patient seen in Pre Admission Testing Teaching & Discussion Pre-Anesthesia Teaching/Discussion Notes: Instructed NPO after midnight before surgery, except medications with 15 cc of water. Medication instructions provided according to the PAT guidelines. History Surgery Operation Date: 05/17/22 07:45 Proposed Procedures p L1-L2 Decompression with Possible Coflex, L3-S1 Decompression and Fusion, Spinal Cord Monitoring - Dean Ramirez, Height/Weight Height: 5 ft Weight: 72.575 kg Allergies Allergy/AdvReac Type Severity Reaction Status Date / Time azithromycin [From Zithromax] Allergy Mild DIARRHEA,NAUSEA Verified 04/27/22 14:02 VOMITING ABD PAIN clopidogrel Allergy Mild ABDOMINAL Verified 04/27/22 14:02 PAIN/SICK TO STOMACH lisinopril Allergy Mild HANDS WENT Verified 04/27/22 14:02 NUMB nickel Allergy Mild SKIN Verified 04/27/22 14:02 IRRITATION WITH EARRINGS azathioprine Allergy Unknown UNKNOWN OF Verified 04/27/22 14:02 REACTION egg AdvReac Severe urgent Verified 04/27/22 14:03 diarrhea Medications Home Medications Medication Instructions Recorded Confirmed Last Taken aspirin 81 mg tablet,delayed 81 mg PO QAM 11/24/17 04/27/22 12/07/21 07:00 release (Aspir-Low) cholecalciferol (vitamin D3) 125 5,000 unit PO QAM 11/24/17 04/27/22 12/07/21 07:00 mcg (5,000 unit) tablet (Vitamin D3) ibuprofen 200 mg tablet 200 mg PO Q6H PRN Pain 04/11/20 04/27/22 12/01/21 fluticasone propionate 50 1 spray intranasal BID #30 mL 10/20/21 04/27/22 Unknown mcg/actuation nasal spray,suspension (Allergy Relief (fluticasone)) mupirocin 2 % topical ointment 1 applic topical BID #15 grams 10/22/21 04/27/22 Unknown amlodipine 5 mg tablet See Rx Instructions .Route 02/10/22 04/27/22 Unknown .COMPLEX #90 tabs prednisone 5 mg tablet See Rx Instructions .Route 02/10/22 04/27/22 Unknown .COMPLEX #90 tabs lansoprazole 15 mg capsule,delayed See Rx Instructions .Route 04/05/22 04/27/22 Unknown release .COMPLEX #90 caps triamterene 37.5 See Rx Instructions .Route 04/05/22 04/27/22 Unknown mg-hydrochlorothiazide 25 mg tablet .COMPLEX #90 tabs Past Medical History Medical History (Updated 05/03/22 @ 11:12 by Isabel Grayson PA-C) Aortic stenosis, mild Mild aortic stenosis (KINA 1.6-1.7cm2, MG 9.3mmhg) per 08/2020 echo CKD (chronic kidney disease) stage 3, GFR 30-59 ml/min GERD (gastroesophageal reflux disease) controlled, stable per pt Hyperlipidemia No meds Hypertension controlled, stable per pt Rectal bleeding suspected d/t internal hemorrhoids per [place] [facility] records Rotator cuff tear R with associated paresthesias if in certain positions for extended intervals Patient denies h/o stroke, seizures, heart attack, heart failure, DM, blood clots or blood transfusions. Exercise / Class Metabolic Activity II 4-5 Yardwork/Stairs/Walk up hill (denies chest discomfort or shortness of breath with 1 FOS) Past Family History Family History Sister Lung cancer Brother Congestive heart failure Father Hepatic cirrhosis Denies family history of Ovarian cancer Prostate cancer Myocardial infarction Breast cancer Colorectal cancer Past Surgical History Surgical History (Updated 05/03/22 @ 11:12 by Isabel Grayson PA-C) History of appendectomy (1963) History of bunionectomy RT/LEFT History of carpal tunnel release RT/LEFT History of cataract surgery RT/LEFT History of section History of cholecystectomy (1971) History of hysterectomy (2011) partial History of tooth extraction History of total hip arthroplasty RT HIP (05/19/17): SAB L3-L4, 1 attempt Hx of colonoscopy Hx of LASIK Status post right foot surgery Status post total shoulder arthroplasty Left reverse TSA (12/08/2021): LMA#4 (igel) + PNB at [facility]. No issues noted per post-op anesthesia progress note. Past Anesthesia History No Hx of Anesthesia Complications and No Family Hx of Anesthesia Complications History of PONV No Hx of PONV and No Hx of Motion Sickness Social History Smoking Status: Never smoker Do You Dip or Chew Tobacco: No Hx Alcohol Use: No alcohol intake frequency: holidays/special occasions only Hx Substance Use: No substance use type: does not use Review of Systems Snoring, denies witnessed apneas. Patient denies chest pain, shortness of breath, dyspnea on exertion, fever, chills, cough, wheezing, or palpitations. Physical Exam Vital Signs Vitals BP 144/87 P 79 TEMP 98.7 SP02 97% on RA RESP 18 Physical Full cervical extension range of motion without pain TMD 3.5 finger breadths Mallampati Score 2 Dentition: upper removable plate; denies chipped or loose teeth, caps/crowns Lungs: normal respiratory effort. Clear throughout to auscultation, no adventitious breath sounds Cardiac: regular rate and rhythm, no murmurs noted Carotid arteries: negative bruit bilat Lab Results Anesthesia Preop Results Results Anesthesia Widget: WBC 8.76 K/ul (4.8-10.8) 05/03/22 Hgb 12.6 g/dl (12.0-16.0) 05/03/22 Hct 36.0 % (37.0-47.0) L 05/03/22 Plt 184 K/uL (130-400) 05/03/22 Na 139 mmol/L (136-145) 05/03/22 K 3.7 mmol/L (3.5-5.1) 05/03/22 Cl 103 mmol/L (98-107) 05/03/22 CO2 30 mmol/L (21-32) 05/03/22 BUN 22 mg/dl (6-23) 05/03/22 Creat 0.94 mg/dl (0.6-1.2) 05/03/22 Glucose Level 107 mg/dl (70-99(Fasting)) H 05/03/22 PT 10.8 Seconds (9.0-12.0) 05/03/22 PTT 24.8 Seconds (21.0-31.0) 05/03/22 INR 1.0 (0.9-1.1) 05/03/22 Urine Color Yellow 05/03/22 Urine Appearance Clear (Clear) 05/03/22 Urine pH 6.5 (4.5-7.5) 05/03/22 Urine Specific [place] 1.017 (1.000-1.030) 05/03/22 Urine Protein Negative (Negative) 05/03/22 Urine Glucose (UA) Negative (Negative) 05/03/22 Urine Ketones Negative (Negative) 05/03/22 Urine Blood Negative (Negative) 05/03/22 Urine Nitrite Positive (Negative) A 05/03/22 Urine Bilirubin Negative (Negative) 05/03/22 Urine Urobilinogen Negative (Negative) 05/03/22 Urine Leukocyte Esterase 2+ (Negative) H 05/03/22 Urine WBC (Auto) 10-30 /hpf (0-5) H 05/03/22 Urine RBC (Auto) 0-4 /hpf (0-4) 05/03/22 Urine Hyaline Casts (Auto) 0 /lpf (0-5) 05/03/22 Urine Epithelial Cells (Auto) >30 /lpf (0-5) H 05/03/22 Urine Bacteria (Auto) 4+ (Negative) H 05/03/22 Blood Type A Positive 05/03/22 Antibody Screen NEGATIVE 05/03/22 Testing Laboratory Results Surgeon's office made aware of abnormal UA. Electrocardiogram Date: 05/03/22 Sinus rhythm with PACs, rate 89bpm Chest X-Ray Date: 05/03/22 Cardiomediastinal and hilar silhouettes are within normal limits. No pneumothorax, pleural effusion, airspace consolidation or pulmonary edema. There are a few chronic appearing left-sided rib fractures. Age-indeterminate thoraco lumbar compression deformity may also be chronic. IMPRESSION: No acute process. Echocardiogram Date: 08/28/20 EF 65-70% Normal LV wall motion Mild cLVH Grade I diastolic dysfunction Mild valvular aortic stenosis (KINA 1.6-1.7cm2, MG 9.3mmhg) Mild aortic regurgitation COVID-19 Risk Screen Screening Information COVID-19 Screen Date: 05/03/22 Exposure 21 Days Family/Household +COVID Last 21 Days: No Exposure 10 Days Any COVID Exposure Last 10 Days: No Symptoms Last 10 Days Experienced COVID Sx Last 10 Days: No + COVID 0-90 Days COVID + in Last 0-90 Days: No
[~2022-05-17 11:35] MED LIST changes: -ACET-24 PO; +ACETAMINOPHEN 500 MG TAB PO SCH; -AMLO5TAB3 PO; -ASPI-320 PO; -CHOL1000 PO; -CLB200 PO; +CeleBREX 200 MG CAP PO SCH; +GABAPENTIN 300 MG CAP PO SCH; +LR 15ML/HR IV SCH; -PRED-301 PO; -RXC5 PO; -TRIA37.5 PO; +ceFAZolin 2000MG 2,000 MG/15 ML SYR IV SCH
[2022-05-17] MEDS ORDERED: ONDANSETRON INJ 2 MG/ML 2 ML VIAL IV PRN ×2 (12:31→17:57)
[2022-05-17] MEDS ORDERED: PROMETHAZINE HCL 12.5 MG in SODIUM CHLORIDE 0.9% 50 ML IV PRN ×2 (12:31→17:57)
[2022-05-17] MEDS ORDERED: ATROPINE SULFATE 0.1 MG/ML 10ML SYR IV PRN (12:31)
[2022-05-17] MEDS ORDERED: fentaNYL citrate PF 100 MCG/2 ML VIAL ONE ×2 (13:17→14:45)
--- NOTE | 2022-05-17 13:24 | History & Physical Bridge Note ---
Date of Service May 17, 2022 History & Physical Bridge Note I have examined the patient, reviewed the History & Physical and in the interval since the performance of the History & Physical I have noted the following changes of clinical significance: no changes noted
--- NOTE | 2022-05-17 13:25 | History & Physical Report ---
Date of Service May 17, 2022 Assessment & Plan (1) Spinal stenosis, lumbar region with neurogenic claudication: Plan: L1-L2 decompression with possible Coflex, L3-S1 decompression and fusion. History of Present Illness Chief Complaint: Back and leg pain Primary Care Provider: Ester Brink MD This is a 71-year-old female who presents with chronic persistent back and leg pain after failing course of nonoperative care is here for surgical intervention. Allergies Allergy/AdvReac Type Severity Reaction Status Date / Time azithromycin [From Zithromax] Allergy Mild DIARRHEA,NAUSEA Verified 05/17/22 12:19 VOMITING ABD PAIN clopidogrel Allergy Mild ABDOMINAL Verified 05/17/22 12:19 PAIN/SICK TO STOMACH lisinopril Allergy Mild HANDS WENT Verified 05/17/22 12:19 NUMB nickel Allergy Mild SKIN Verified 05/17/22 12:19 IRRITATION WITH EARRINGS azathioprine Allergy Unknown UNKNOWN OF Verified 05/17/22 12:19 REACTION egg AdvReac Severe urgent Verified 05/17/22 12:19 diarrhea Sulfa (Sulfonamide AdvReac Mild Verified 05/17/22 12:19 Antibiotics) Home Medications Medication Instructions Recorded Confirmed Type aspirin 81 mg tablet,delayed 81 mg PO QAM 11/24/17 05/17/22 History release (Aspir-Low) cholecalciferol (vitamin D3) 125 5,000 unit PO QAM 11/24/17 05/17/22 History mcg (5,000 unit) tablet (Vitamin D3) ibuprofen 200 mg tablet 200 mg PO Q6H PRN Pain 04/11/20 05/17/22 History prednisone 5 mg tablet See Rx Instructions .Route 02/10/22 05/17/22 Rx .COMPLEX #90 tabs triamterene 37.5 See Rx Instructions .Route 04/05/22 05/17/22 Rx mg-hydrochlorothiazide 25 mg tablet .COMPLEX #90 tabs amlodipine 5 mg tablet 5 mg PO DAILY 05/17/22 05/17/22 History lansoprazole 15 mg capsule,delayed 15 mg PO DAILY 05/17/22 05/17/22 History release (Prevacid 24Hr) Past Med/Surg History Medical History Aortic stenosis, mild Mild aortic stenosis (KINA 1.6-1.7cm2, MG 9.3mmhg) per 08/2020 echo CKD (chronic kidney disease) stage 3, GFR 30-59 ml/min GERD (gastroesophageal reflux disease) controlled, stable per pt Hyperlipidemia No meds Hypertension controlled, stable per pt Rectal bleeding suspected d/t internal hemorrhoids per [place] [facility] records Rotator cuff tear R with associated paresthesias if in certain positions for extended intervals Surgical History History of appendectomy (1963) History of bunionectomy History of carpal tunnel release History of cataract surgery History of section History of cholecystectomy (1971) History of hysterectomy (2011) History of tooth extraction History of total hip arthroplasty Hx of colonoscopy Hx of LASIK Status post right foot surgery Status post total shoulder arthroplasty Family History Sister Lung cancer Brother Congestive heart failure Father Hepatic cirrhosis Denies family history of Ovarian cancer Prostate cancer Myocardial infarction Breast cancer Colorectal cancer Social History Smoking Status: Never smoker Second Hand Exposure: No; Do You Dip or Chew Tobacco: No; Tobacco Cessation Education Requested by Patient: No Hx Alcohol Use: No Hx Substance Use: No Preferred Language: [place] Communication Ability: Effective Visual Impairment: No Limitations Hearing Ability: Normal [employer] Technician Required: No Beliefs That Will Affect Care: None marital status: Current Living Situation: Alone current occupational status: retired How many Children do You have: 3 Other Information That Helps Us Care for You: No Feels Safe at Home: Yes Safety Concerns: Feels Safe At This Time Childhood Exposure to Second-Hand Smoke: No caffeine: Yes during the past year weight has: remained stable Dental Care, Regularly: No Physical Activity Frequency: Daily Seatbelt Use: always Sunscreen Use: Yes Assistive Devices: Cane, Denture - Upper and Walker Assistive Devices Comment: walker/cane prn for long distance Physical Exam Physical Exam: Patient is alert and oriented Heart regular rhythm Lungs clear Results & Data Results & Data Vital Signs (Past 12 Hours) Vital Signs Temp Pulse Resp BP Pulse Ox O2 Del Method 05/17/22 12:32 36.7 C 93 H 20 155/86 H 98 Room Air
[2022-05-17] MEDS ORDERED: ceFAZolin 330 MG/ML 1 GM VIAL ONE (13:49)
[2022-05-17] MEDS ORDERED: BUPIVACAINE/EPINEPHRINE 0.25% 1:200,000 30 ML VIAL ONE (13:49)
[2022-05-17] MEDS ORDERED: KETAMINE 50 MG/5 ML SYRINGE ONE (14:19)
[2022-05-17] MEDS ORDERED: FLOSEAL HEMOSTATIC MATRIX 10ML TOP ONE (15:08)
[2022-05-17] MEDS ORDERED: PROPOFOL IV EMULSION 10 MG/ML 20 ML VIAL IV ONE (16:11)
[2022-05-17] MEDS ORDERED: DEXAMETHASONE SOD INJ 4 MG/ML VIAL ONE (16:11)
[2022-05-17] MEDS ORDERED: ONDANSETRON INJ 2 MG/ML 2 ML VIAL ONE (16:12)
[2022-05-17] MEDS ORDERED: ROCURONIUM BROMIDE 10 MG/ML 5 ML VIAL IV ONE (16:12)
[2022-05-17] MEDS ORDERED: ePHEDrine sulfate 50 MG/ML AMP ONE (16:12)
[2022-05-17] MEDS ORDERED: LIDOCAINE 2% MPF LOCAL 5 ML VIAL ONE (16:12)
[2022-05-17] MEDS ORDERED: SUGAMMADEX SODIUM 200 MG/2 ML VIAL IV ONE (16:29)
--- NOTE | 2022-05-17 16:36 | Operative Report ---
Post Operative Report Pre & Post Diagnosis Operation Date: 05/17/22 12:55 Pre-Op Diagnosis: Spinal Stenosis, Lumber Region with Neurogenic Cla Post-Op Diagnosis: Spinal Stenosis, Lumber Region with Neurogenic Cla I identified the patient and participated in the time-out.: Yes Procedure Operation Date: 05/17/22 12:55 Actual Procedures #1 lumbar decompression bilaterally facetectomies and foraminotomies L2-L3, L3- L4, L4-5 and L5-S1. #2 posterior spinal fusion L3-S1. #3 placed a posterior segmental instrumentation L3-S1. #4 interbody fusion L3-L4 L4-L5 L5-S1. #5 placement of Spira 10 x 26 mm at L3-L4 12 x 26 mm at L4-5 and 12 x 26 mm at L5- S1. #6 placement locally harvested morselized autograft in the posterior gutters. #7 placement I factor amount of the test in the interbody space and posterior lateral gutters. Surgeon Dean Ramirez, Specification Manager Brenda Toro Estimated Blood Loss 500 Findings Consistent with Post-Op Diagnosis Specimens None Indications This is a 71-year-old female who presents with above-mentioned diagnosis after failed course of nonoperative care she is here for the above-mentioned procedure. Description of Procedure Patient was met with identified informed consent obtained. Patient was then taken to the operative suite underwent intubation placed in the prone position on the Srinivas table top Conner frame. All bony prominences well-padded eyes inspected to ensure no external pressure placed upon them. At this point the lumbar spine was prepped and draped in normal sterile fashion. Sharp dissection with the assistance of Bovie cautery performed down to and exposing the lamina transverse processes of L3-L4-L5 and sacral ala bilaterally. Giron cephalad fashion complete laminectomy L5 L4 L3 impression laminectomy L2 was performed including bilateral medial facetectomy and foraminotomies addressing severe spinal stenosis. Pedicle screws were then placed in L3-L4-L5 and S1 levels bilaterally with assistance of fluoroscopy and the properly sized aga placed. By way of transforaminal approach on the right complete discectomy of L5-S1 was performed endplates curetted to subcortical bleeding bone and a 12 x 26 mm Spira cage with I factor tapped in position. Then proceeded L4-L5 and again bilateral transforaminal approach on the right complete discectomy performed endplates curetted to subcortical bleeding bone and a 12 x 26 mm Spira cage with I factor tapped in position. Lastly proceeded to L3-L4 and again by way the transforaminal approach and right complete discectomy performed endplates curetted to subcortically bone and 11 x 26 mm Spira cage with I factor tapped in position. The rods were then locked into final position bilaterally. The transverse processes of L3-L4-L5 and sacral ala burred to subcortical bleeding bone. I factor amount of the test and locally harvested morselized autograft was placed in the posterior gutters. 15 round MARGUERITE drain inserted. The incision was then closed with 1 Vicryl to fascia 2-0 Vicryl subcutaneously and 4 Monocryl for final skin closure. Steri-Strips sterile dressing placed. Patient waken taken to PACU in stable condition. Please note spinal cord monitoring was utilized at the procedure no changes noted. Lastly Brenda Toro was present at the entire procedure and all the patient positioning complex portions of the surgery and final skin closure. I attest to the content of the Intraoperative Record and any orders documented therein. Any exceptions are noted below.
--- NOTE | 2022-05-17 16:52 | Fluoroscopy Report ---
FL lumbar spine 2-3V CLINICAL HISTORY: L1-L2 DECOMPRESSION AND POSSIBLE COFLEX L3-S1 DECOMPRESSION TECHNIQUE: 2 views were obtained with the C-arm in the OR with the above procedure. Total fluoroscopy time was 26.2 seconds. Radiation dose was 23.67 mGy. Comparison: Comparison is made to lumbar spine MRI 04/12/2022 FINDINGS/IMPRESSION: Intraoperative images were obtained of posterior fixation hardware is seen dani ing L3-S1. Please correlate with intraoperative fluoroscopy and operative report. ACT 112: Negative or not required by law. Electronically signed by: Sudheer Mcarthur M.D. 05/17/2022 4:50 PM
[2022-05-17] MEDS: HYDROmorphone INJ 1 MG/ML SYRINGE IV PRN ×4 (17:06→17:37)
--- NOTE | 2022-05-17 17:34 | Anesthesiology Progress Note ---
Date of Service May 17, 2022 Anesthesia Post Procedure Vital Signs Vital Signs: Temp Pulse Pulse Resp BP BP Pulse Ox 05/17/22 17:25 89 14 132/77 127/76 99 05/17/22 17:15 94 H 15 127/76 100 05/17/22 17:05 87 17 156/78 H 100 05/17/22 16:57 36.6 C 74 18 168/86 H 100 05/17/22 12:32 36.7 C 93 H 20 155/86 H 98 O2 Del Method O2 Flow Rate 05/17/22 17:25 Oxymask 5 05/17/22 17:15 Oxymask 9 05/17/22 17:05 Oxymask 9 05/17/22 16:57 Oxymask 9 05/17/22 12:32 Room Air Pain Intensity Bilateral Lower Back: Pain Intensity: 10 Back: Pain Intensity: 2 Transfer of Care Handoff Completed per policy Notes Mental Status: alert / awake / arousable and participated in evaluation Patient Amnestic to Procedure: Yes Nausea / Vomiting: adequately controlled Pain: adequately controlled Airway Patency, RR, SpO2: stable & adequate BP & HR: stable & adequate Hydration State: stable & adequate Anesthetic Complications: no major complications apparent and Pt Satisfied with anesthetic care
[2022-05-17] MEDS ORDERED: LORazepam 2 MG/1 ML VIAL IV PRN (17:57)
[2022-05-17] MEDS ORDERED: DO NOT ADMINISTER PNEUMOCOCCAL VACCINE PRN (17:57)
[2022-05-17] MEDS ORDERED: bisacodyL 10 MG SUPP PR PRN (17:57)
[2022-05-17] MEDS ORDERED: LORazepam 0.5 MG TAB PO PRN (17:57)
[2022-05-17] MEDS ORDERED: hydrOXYzine HCl 25 MG TAB PO PRN (17:57)
[2022-05-17] MEDS ORDERED: SOD PHOSPHATE/SOD BIPHOSPHATE ENEMA 132 ML BTL PR PRN (17:57)
[2022-05-17] MEDS ORDERED: ACETAMINOPHEN 1,000 MG/100 ML VIAL IV PRN (17:57)
[2022-05-17] MEDS ORDERED: diphenhydrAMINE Capsule 25 MG CAP PO PRN (17:57)
[2022-05-17] MEDS ORDERED: ACETAMINOPHEN 500 MG TAB PO PRN (17:57)
[2022-05-17] MEDS ORDERED: ONDANSETRON 4 MG OD TAB PO PRN (17:57)
[2022-05-17] MEDS ORDERED: NALOXONE HCL 0.4 MG/1 ML VIAL/CARP IV PRN (17:57)
[2022-05-17] MEDS ORDERED: METOCLOPRAMIDE HCL INJ 5 MG/ML 2 ML VIAL IV PRN (17:57)
[2022-05-17] MEDS ORDERED: HYDROmorphone INJ 1 MG/ML SYRINGE IV PRN (17:57)
[2022-05-17] MEDS ORDERED: MAGNESIUM HYDROXIDE SUSP 30 ML UDC PO PRN (17:57)
[2022-05-17] MEDS ORDERED: DO NOT ADMINISTER FLU VACCINE PRN (17:57)
[2022-05-17] MEDS ORDERED: ALUMINUM/MAGNESIUM SUSP 30 ML UDC PO PRN (17:57)
[2022-05-17] MEDS ORDERED: FAMOTIDINE 20 MG TAB PO PRN (17:57)
[2022-05-17] MEDS: LACTATED RINGER'S 1,000 ML IV SCH (18:25)
[2022-05-17] MEDS: oxyCODONE HCL IR 5 MG TAB (IMMEDIATE RELEASE) PO PRN (21:06)
[2022-05-17] MEDS: DOCUSATE SODIUM/SENNA 50/8.6MG TAB PO SCH (21:16)
[2022-05-17] MEDS: HYDROmorphone INJ 0.5 MG/0.5 ML SYR IV PRN (21:45)
[2022-05-18] MEDS: ceFAZolin 2000MG 2,000 MG/15 ML SYR IV SCH ×2 (01:00→06:29)
[2022-05-18] MEDS: traMADol HCL 50 MG TABLET PO PRN (01:04)
[2022-05-18] MEDS: LACTATED RINGER'S 1,000 ML IV SCH (01:48)
[2022-05-18] MEDS: HYDROmorphone INJ 0.5 MG/0.5 ML SYR IV PRN ×2 (01:51→22:04)
--- NOTE | 2022-05-18 03:03 | Hospitalist Consultation ---
Date of Consultation May 18, 2022 Assessment & Plan (1) Spinal stenosis, lumbar region with neurogenic claudication: Lumbar spinal stenosis with neurogenic claudication -Tolerated without complication. Vitals stable, within normal limits. -Reviewed chart, medications, I's and O's, past medical history, labs. * AM labs: CBC, BMP, magnesium, phosphorus * Replete lytes as needed. * No indications for further hospitalization. Defer dispo planning to primary care team. Supervising Physician Co-Signing Physician Notes Attending addendum: I have physically seen this patient, have supervised the medical residents act ivities, and agree with the H&P unless as otherwise noted. Assessment and Plan: Status post L3-S1 decompression fusion for lumbar spinal stenosis with neurogenic claudication- Seen postoperatively is medically stable Pain medications per primary service Hypertension/mild aortic stenosis/CKD- Amlodipine, aspirin, transferring/HCTZ as noted CBC with differential, chemistry profile in a.m. GERD- Continue continue pantoprazole in place of lansoprazole Hospital medicine will follow along during hospital stay History of Present Illness Attending Physician: Dean Ramirez, DO History of Present Illness Patient is s/p L3-S1 Decompression and Fusion, Spinal Cord Monitoring procedure done on 05/17/2022 for chronic lumbar spinal stenosis with neurogenic claudication. Patient tolerated procedure well without complication. Consult placed by orthopedic surgery for medical management. Allergies Allergy/AdvReac Type Severity Reaction Status Date / Time azithromycin [From Zithromax] Allergy Mild DIARRHEA,NAUSEA Verified 05/17/22 12:19 VOMITING ABD PAIN clopidogrel Allergy Mild ABDOMINAL Verified 05/17/22 12:19 PAIN/SICK TO STOMACH lisinopril Allergy Mild HANDS WENT Verified 05/17/22 12:19 NUMB nickel Allergy Mild SKIN Verified 05/17/22 12:19 IRRITATION WITH EARRINGS azathioprine Allergy Unknown UNKNOWN OF Verified 05/17/22 12:19 REACTION egg AdvReac Severe urgent Verified 05/17/22 12:19 diarrhea Sulfa (Sulfonamide AdvReac Mild Verified 05/17/22 12:19 Antibiotics) Home Medications Medication Instructions Recorded Confirmed Type aspirin 81 mg tablet,delayed 81 mg PO QAM 11/24/17 05/17/22 History release (Aspir-Low) cholecalciferol (vitamin D3) 125 5,000 unit PO QAM 11/24/17 05/17/22 History mcg (5,000 unit) tablet (Vitamin D3) ibuprofen 200 mg tablet 200 mg PO Q6H PRN Pain 04/11/20 05/17/22 History prednisone 5 mg tablet See Rx Instructions .Route 02/10/22 05/17/22 Rx .COMPLEX #90 tabs triamterene 37.5 See Rx Instructions .Route 04/05/22 05/17/22 Rx mg-hydrochlorothiazide 25 mg tablet .COMPLEX #90 tabs amlodipine 5 mg tablet 5 mg PO DAILY 05/17/22 05/17/22 History lansoprazole 15 mg capsule,delayed 15 mg PO DAILY 05/17/22 05/17/22 History release (Prevacid 24Hr) oxycodone 5 mg tablet 5 mg PO DAILY PRN pain #30 tabs 05/18/22 Rx tramadol 50 mg tablet 50 mg PO Q6H PRN pain, moderate 05/18/22 Rx #30 tabs Patient History Medical History Aortic stenosis, mild Mild aortic stenosis (KINA 1.6-1.7cm2, MG 9.3mmhg) per 08/2020 echo CKD (chronic kidney disease) stage 3, GFR 30-59 ml/min GERD (gastroesophageal reflux disease) controlled, stable per pt Hyperlipidemia No meds Hypertension controlled, stable per pt Rectal bleeding suspected d/t internal hemorrhoids per [place] PCP records Rotator cuff tear R with associated paresthesias if in certain positions for extended intervals Surgical History History of appendectomy (1963) History of bunionectomy History of carpal tunnel release History of cataract surgery History of section History of cholecystectomy (1971) History of hysterectomy (2011) History of tooth extraction History of total hip arthroplasty Hx of colonoscopy Hx of LASIK Status post right foot surgery Status post total shoulder arthroplasty Family History Sister Lung cancer Brother Congestive heart failure Father Hepatic cirrhosis Denies family history of Ovarian cancer Prostate cancer Myocardial infarction Breast cancer Colorectal cancer Social History Smoking Status: Never smoker Second Hand Exposure: No; Do You Dip or Chew Tobacco: No; Tobacco Cessation Education Requested by Patient: No Hx Alcohol Use: No Hx Substance Use: No Preferred Language: Serbian Communication Ability: Effective Visual Impairment: No Limitations Hearing Ability: Normal Arterial Embalmer Required: No Beliefs That Will Affect Care: None marital status: Current Living Situation: Alone current occupational status: retired How many Children do You have: 3 Other Information That Helps Us Care for You: No Feels Safe at Home: Yes Safety Concerns: Feels Safe At This Time Childhood Exposure to Second-Hand Smoke: No caffeine: Yes during the past year weight has: remained stable Dental Care, Regularly: No Physical Activity Frequency: Daily Seatbelt Use: always Sunscreen Use: Yes Assistive Devices: Walker Assistive Devices Comment: walker/cane prn for long distance Review of Systems Review of Systems: All systems reviewed & are unremarkable except as noted in HPI & below Physical Exam Physical Exam: General: No acute distress HEENT: PERRLA. Normal conjunctiva, anicteric sclera. Oropharynx normal. Respiratory: Normal respiratory effort, CTABL. Cardiovascular: RRR without murmurs, gallops, or rubs. No edema. GI: Soft abdomen with normal bowel sounds heard on auscultation. Nontender x4 quadrants Neuro: Alert and oriented x3. Results & Data Results & Data Vital Signs (Past 12 Hours) Vital Signs Temp Pulse Pulse Resp BP BP Pulse Ox 05/18/22 00:00 37.0 C 88 15 121/72 96 05/17/22 21:07 36.8 C 81 18 123/79 96 05/17/22 20:08 36.8 C 84 15 126/77 96 05/17/22 18:30 37.1 C 87 18 116/77 97 05/17/22 19:00 36.7 C 87 16 117/72 100 05/17/22 18:00 77 18 109/72 97 05/17/22 18:29 05/17/22 17:55 87 13 130/75 96 05/17/22 17:45 36.5 C 90 13 117/77 96 05/17/22 17:35 89 13 126/82 98 05/17/22 17:25 89 14 132/77 99 05/17/22 17:15 94 H 15 127/76 100 05/17/22 17:05 87 17 156/78 H 100 05/17/22 16:57 36.6 C 74 18 168/86 H 100 O2 Del Method O2 Flow Rate 05/18/22 00:00 Room Air 05/17/22 21:07 Room Air 05/17/22 20:08 Room Air 05/17/22 18:30 Nasal Cannula 2 05/17/22 19:00 Nasal Cannula 2 05/17/22 18:00 Room Air 05/17/22 18:29 Room Air 05/17/22 17:55 Nasal Cannula 2 05/17/22 17:45 Nasal Cannula 2 05/17/22 17:35 Nasal Cannula 2 05/17/22 17:25 Oxymask 5 05/17/22 17:15 Oxymask 9 05/17/22 17:05 Oxymask 9 05/17/22 16:57 Oxymask 9 Resident Activity Tracking Resident Involvement: Resident Care Provided Care Provided: Adult Hospital Medicine
[2022-05-18] MEDS: POLYETHYLENE (MIRALAX) 17 GM PACK PO SCH ×4 (06:29→23:26)
[2022-05-18 06:48] LABS: Basophils # (auto) 0.05 K/uL (0-0.2); Basophils % (auto) 0.5 %; Eosinophils # (auto) 0.15 K/uL (0-0.50); Eosinophils % (auto) 1.5 %; Hematocrit (blood only) 30.8 % (37.0-47.0); Hemoglobin 10.6 g/dl (12.0-16.0); Immature Granulocytes # (auto) 0.05 K/uL (0.01-0.20); Immature Granulocytes % (auto) 0.5 %; Lymphocytes # (auto) 1.46 K/uL (1.2-3.4); Lymphocytes % (auto) 14.3 %; Mean Corpuscular Hemoglobin 32.6 pg (25.0-34.0); Mean Corpuscular Hgb Conc 34.4 g/dL (32.0-36.0); Mean Corpuscular Volume 94.8 fL (80.0-100.0); Mean Platelet Volume 10.8 fL (9.4-12.4); Monocytes # (auto) 0.96 K/uL (0.11-0.59); Monocytes % (auto) 9.4 %; Neutrophils # (auto) 7.57 K/uL (1.40-6.50); Neutrophils % (auto) 73.8 %; Platelet Count 182 K/uL (130-400); RDW Coefficient of Variation 13.6 % (11.5-14.5); RDW Standard Deviation 46.9 fL (36.4-46.3); Red Blood Count 3.25 M/uL (4.20-5.40); White Blood Count 10.24 K/ul (4.8-10.8)
[2022-05-18 07:06] LABS: BUN Creatinine Ratio 23.5 (10-20); Calcium 8.2 mg/dl (8.6-10.3); Creatinine Clr Calc Pharmacy 56.9 ml/min; Est GFR (African American) 84.7 ml/min; Est GFR (Non-African American) 73.1 ml/min; Magnesium 1.6 mg/dl (1.7-2.4); Phosphorus 3.4 mg/dl (2.5-4.9); Potassium 3.4 mmol/L (3.5-5.1)
--- NOTE | 2022-05-18 08:18 | Orthopedic Progress Note ---
Date of Service May 18, 2022 Assessment & Plan (1) Spinal stenosis, lumbar region with neurogenic claudication: Plan: This emergency physical therapy monitor her MARGUERITE operatively discharge home in the next few days. Admission and Anticipated Discharge Date Admission Date: May 17, 2022 Subjective Patient's back pain is controlled leg pain improved Physical Exam Physical Exam: Patient is still in bed. She is comfortable. Good strength testing. Results & Data Vital Signs (Past 12 Hours) Vital Signs Temp Pulse Resp BP BP Pulse Ox O2 Del Method 05/18/22 07:55 Room Air 05/18/22 07:50 37.6 C H 100 H 16 124/77 93 Nasal Cannula 05/18/22 03:59 37.5 C 89 15 115/74 98 Room Air 05/18/22 00:00 37.0 C 88 15 121/72 96 Room Air 05/17/22 21:07 36.8 C 81 18 123/79 96 Room Air O2 Flow Rate 05/18/22 07:55 05/18/22 07:50 2 05/18/22 03:59 05/18/22 00:00 05/17/22 21:07
[2022-05-18] MEDS: oxyCODONE HCL IR 5 MG TAB (IMMEDIATE RELEASE) PO PRN ×3 (08:27→17:52)
[2022-05-18] MEDS: CHOLECALCIFEROL 5,000 UNITS 125 MCG TAB PO SCH (08:28)
[2022-05-18] MEDS: ASPIRIN 81 MG ECTAB PO SCH (08:28)
[2022-05-18] MEDS: PANTOprazole 40 MG TAB PO SCH (08:28)
[2022-05-18] MEDS: amLODIPine BESYLATE 5 MG TAB PO SCH (08:28)
[2022-05-18] MEDS: TRIAMTERENE/HCTZ 37.5/25MG TAB PO SCH (08:29)
[2022-05-18] MEDS: dexAMETHasone 6 MG in SYRINGE 0 ML IV SCH (08:30)
[2022-05-18] MEDS: DOCUSATE SODIUM/SENNA 50/8.6MG TAB PO SCH (20:26)
[2022-05-19] MEDS: traMADol HCL 50 MG TABLET PO PRN (05:28)
[2022-05-19] MEDS: POLYETHYLENE (MIRALAX) 17 GM PACK PO SCH ×3 (06:44→16:44)
[2022-05-19] MEDS: amLODIPine BESYLATE 5 MG TAB PO SCH (07:21)
[2022-05-19] MEDS: TRIAMTERENE/HCTZ 37.5/25MG TAB PO SCH (07:22)
[2022-05-19] MEDS: PANTOprazole 40 MG TAB PO SCH (07:22)
[2022-05-19] MEDS: CHOLECALCIFEROL 5,000 UNITS 125 MCG TAB PO SCH (07:22)
[2022-05-19] MEDS: ASPIRIN 81 MG ECTAB PO SCH (07:22)
[2022-05-19] MEDS: dexAMETHasone 6 MG in SYRINGE 0 ML IV SCH (07:22)
--- NOTE | 2022-05-19 10:12 | Orthopedic Progress Note ---
Date of Service May 19, 2022 Assessment & Plan (1) Spinal stenosis, lumbar region with neurogenic claudication: Plan: At this time we will continue physical therapy monitor MARGUERITE output. She would like to go home if possible. We will see how she progresses throughout the day and through tomorrow. Admission and Anticipated Discharge Date Admission Date: May 17, 2022 Subjective Back pain controlled leg symptoms improved Physical Exam Physical Exam: Patient is in the chair at the bedside. Appears comfortable. Skin strength testing. Results & Data Vital Signs (Past 12 Hours) Vital Signs Temp Pulse Resp BP Pulse Ox O2 Del Method 05/19/22 08:58 95 Room Air 05/19/22 08:00 Room Air 05/19/22 07:13 36.7 C 76 16 107/65 91 Room Air
[2022-05-19] MEDS: HYDROCODONE/ACETAMOPHEN 5/325MG TAB PO PRN ×3 (10:44→23:12)
[2022-05-19] MEDS: POTASSIUM CHLORIDE CRTAB 20 MEQ TABCR PO SCH (20:24)
[2022-05-19] MEDS: MAGNESIUM SULFATE / D5W 1 GM/100 ML BAG IV SCH ×2 (20:24→22:29)
[2022-05-19] MEDS: DOCUSATE SODIUM/SENNA 50/8.6MG TAB PO SCH (20:25)
--- NOTE | 2022-05-19 22:30 | Hospitalist Progress Note ---
Date of Service May 19, 2022 Assessment & Plan (1) Spinal stenosis, lumbar region with neurogenic claudication: Plan: Status post L3-S1 decompression fusion for lumbar spinal stenosis with neurogenic claudication- Seen postoperatively is medically stable Pain medications per primary service Hypertension/mild aortic stenosis/CKD- Amlodipine, aspirin, transferring/HCTZ as noted Acute blood los anemia Hemoglobin dropped after surgery from 13 to 10. Patient is hemodynamically stable. GERD- Continue continue pantoprazole in place of lansoprazole Hospital medicine will sign off anticipating discharge on 05/20 Admission and Anticipated Discharge Date Admission Date: May 17, 2022 Subjective Patient reports no new symptoms. Review of Systems Review of Systems: All systems reviewed & are unremarkable except as noted in HPI & below Physical Exam Physical Exam: Patient is lying in bed. Heart: RRR LUng: clear Results & Data Results & Data Vital Signs (Past 12 Hours) Vital Signs Temp Pulse Resp BP BP Pulse Ox O2 Del Method 05/19/22 21:36 37.3 C 89 18 127/80 95 Room Air 05/19/22 17:26 80 166/52 H 94 Room Air 05/19/22 15:02 36.7 C 103 H 17 172/71 H 93 Room Air PG Care Time/CCT Total # of Minutes Spent Total Time Spent with Patient: Total time spent is greater than 50% in coordination of care (as documented) at patient's floor/unit and/or counseling patient: Coding Level of Care Code 10173 SUB INP/OBS CARE 2/35MIN Diagnoses Spinal stenosis, lumbar region with neurogenic claudication M48.062
[2022-05-20] MEDS: HYDROCODONE/ACETAMOPHEN 5/325MG TAB PO PRN ×3 (05:41→22:24)
--- NOTE | 2022-05-20 05:43 | Billing Data ---
Date of Service May 20, 2022 Coding Level of Care Code 71210 IN/OBS CONSULT LVL 3,45M
[2022-05-20] MEDS: dexAMETHasone 6 MG in SYRINGE 0 ML IV SCH (07:35)
[2022-05-20] MEDS: MAGNESIUM OXIDE 400 MG TAB PO SCH (07:35)
[2022-05-20] MEDS: PANTOprazole 40 MG TAB PO SCH (07:36)
[2022-05-20] MEDS: TRIAMTERENE/HCTZ 37.5/25MG TAB PO SCH (07:36)
[2022-05-20] MEDS: amLODIPine BESYLATE 5 MG TAB PO SCH (07:36)
[2022-05-20] MEDS: ASPIRIN 81 MG ECTAB PO SCH (07:36)
[2022-05-20] MEDS: CHOLECALCIFEROL 5,000 UNITS 125 MCG TAB PO SCH (07:36)
[2022-05-20] MEDS: POTASSIUM CHLORIDE CRTAB 20 MEQ TABCR PO SCH ×3 (08:47→20:29)
--- NOTE | 2022-05-20 09:49 | Orthopedic Progress Note ---
Date of Service May 20, 2022 Assessment & Plan (1) Spinal stenosis, lumbar region with neurogenic claudication: Plan: This time we will continue physical therapy monitor MARGUERITE output anticipate discharge home tomorrow. Admission and Anticipated Discharge Date Admission Date: May 17, 2022 Subjective Back pain and proved leg pain improving Physical Exam Physical Exam: On exam she is ambulate with a walker. She is comfortable. Results & Data Vital Signs (Past 12 Hours) Vital Signs Temp Pulse Resp BP Pulse Ox O2 Del Method 05/20/22 09:00 Room Air 05/20/22 07:45 36.7 C 78 16 119/70 93 Room Air
[2022-05-20] MEDS: DOCUSATE SODIUM/SENNA 50/8.6MG TAB PO SCH (20:27)
[2022-05-21] MEDS: HYDROCODONE/ACETAMOPHEN 5/325MG TAB PO PRN ×3 (04:35→12:30)
[2022-05-21] MEDS: PANTOprazole 40 MG TAB PO SCH (08:26)
[2022-05-21] MEDS: amLODIPine BESYLATE 5 MG TAB PO SCH (08:27)
[2022-05-21] MEDS: TRIAMTERENE/HCTZ 37.5/25MG TAB PO SCH (08:27)
[2022-05-21] MEDS: MAGNESIUM OXIDE 400 MG TAB PO SCH (08:27)
[2022-05-21] MEDS: ASPIRIN 81 MG ECTAB PO SCH (08:27)
[2022-05-21] MEDS: CHOLECALCIFEROL 5,000 UNITS 125 MCG TAB PO SCH (08:28)
--- NOTE | 2022-05-21 08:32 | Discharge Summary ---
Date of Service May 21, 2022 Admission HPI Per Admitting Provider This is a 71-year-old female who presents with chronic persistent back and leg pain after failing course of nonoperative care is here for surgical intervention. Admission Exam (Per Admitting) Constitutional WD/WN, vitals as above Eyes normal visual gu by confrontation ENMT external ear and nose normal, oropharynx normal Neck normal visual inspection Respiratory normal respiratory effort Cardiovascular Extremities: normal capillary refill Gastrointestinal (Abdomen) Inspection/Auscultation: abdomen normal to inspection Musculoskeletal Spine: + limited thoraco-lumbar ROM Extremities: extremities normal to inspection Skin no rashes, warm and dry Neurologic normal touch/pain/proprioception and moves all extremities Psychiatric A+Ox3, euthymic affect Eye Contact: good eye contact Discharge Data Consultations 05/17/22 17:57 Consult Hospitalist Routine Procedures Performed Operation Date: 05/17/22 12:55 Actual Procedures p L3-S1 Decompression and Fusion, Spinal Cord Monitoring(Not Applicable) - Dean Ramirez DO Hospital Course (1) Spinal stenosis, lumbar region with neurogenic claudication: Patient is being discharged home on postoperative day 4 status post L3-S1 decompression and fusion. She had an uneventful hospital course. Lab values have been stable. She had a bit of hypokalemia which was replenished orally. She is going to follow-up with her family physician for this in about a week. MARGUERITE drain output has been diminishing appropriately. She is made great progress in physical therapy daily. Pain has been controlled. Discharge Instructions ACTIVITY RECOMMENDATIONS: SELF CARE INSTRUCTIONS AFTER THORACIC/LUMBAR FUSIONS 1. You may walk to your tolerance. It is good exercise for your legs and back. Expect some back and intermittent leg aches and pains. 2. You may perform "counter-top" level activities (make a sandwich, anjum with a project, etc.). 3. No bending or lifting of more than 10 pounds or back twisting of any nature (roll like a log when turning in bed). 4. You may ride in a car for 20-30 minutes at a time. No driving until after your first visit with your doctor. 5. Frequent changes of position and restricting sitting to 30 minutes at a time will help limit the amount of back spasms and stiffness you may experience. 6. You may discontinue the use of ambulatory aids (cane, crutches, etc.) once your strength and confidence allow. 7. You may vending stand supervisor the shower and let water strike your incision when you arrive home at least once daily. Do not take a tub bath, sit in a hot tub or go into a swimming pool until after your first recheck in the office. SPECIAL CARE INSTRUCTIONS: VERY IMPORTANT TO READ AND REVIEW A. Your surgical incision has been closed with a cosmetic suture under the skin that will dissolve in about 6 weeks. In 14 days, you can use a pair of clean scissors and cut the suture that is left outside of the skin at the ends of your incision. 1. The small skin tapes can be removed 7 days after surgery if they have not fallen off by that point. 2. You may keep the wound open to air as much as possible to promote healing after post-op day number 5 unless told otherwise by your doctor. 3. If you think the wound looks like it is becoming infected (redness or worsening drainage) and/or you are experiencing fever, chill or worsening back pain and muscle spasms, contact the office so that we may evaluate you as soon as possible. B. Complications are uncommon, but please contact us if you have any signs or symptoms of: 1. wound infection (fever higher than 102.5 degrees F, redness, separation of wound, drainage, or increasing pain from the incision) 2. blood clots in legs (pain, swelling, redness and warmth in legs) 3. urinary tract infection (fever higher than 102.5 degrees F, burning upon urination or increased frequency of urination) 4. nerve problems (inability to walk on your toes or heels, numbness, loss of bowel or bladder control) 5. any other symptoms that concern you C. Please call the office at if you have any concerns or questions about your operation or recovery. D. No smoking! Smoking drastically decreases the chance of a solid fusion. E. Do not take any anti-inflammatory medications (Indocin, Advil, Motrin, Aspirin, Naprosyn, etc.) as these may inhibit the chance of a solid fusion. Tylenol is okay to take for pain. MANAGING PAIN AFTER SPINAL SURGERY 1. Narcotic medication is intended for short-term use and will be provided for surgical pain. Surgical pain usually lasts for a period of 4-6 weeks. Narcotic medication includes Percocet, Vicodin, Darvocet, Tylenol #3 or Lortab. 2. Longer-term pain is more appropriately treated with non-narcotic medication such as Tylenol ES. 3. Muscle spasm is not appropriately treated with narcotics. Muscle relaxers such as Soma, Flexeril or Skelaxin can be used along with Tylenol ES. 4. Remember that we all live with some "aches and pains". This is not unusual or uncommon after an injury or as we get older. a. Back pain is expected and may include muscle spasms for 4 to 6 weeks after surgery. The pain should gradually improve. If the pain worsens for no apparent reason, please contact the office. b. Intermittent leg pain may also be experienced and should not be concerned about unless it worsens for no apparent reason. If so, please contact the office. 5. We will provide appropriate medication within the normal guidelines of their prescribed use. We will also be very cautious and aware of potential abuse and extended duration of patients' medication needs. a. Pain medications are for your comfort and to assist with sleep and rest so that the tissue can heal. They are not provided in order to return to normal activity and should not be used through the day. To do so or worsening pain at night can result from ongoing tissue damage and development of tolerance to the prescribed medicine. 6. Please allow 2-3 days to process refills. Prescriptions will not be mailed but must be picked up at the office. FOLLOW UP VISIT: Keep your scheduled follow-up appointment. Any questions, please call the office at .
== END 2022-05-21 13:33 | disposition home or self-care (01) | DRG 454 ==
LOC: ASU 11:35 → 3E 16:39

== ENCOUNTER 2023-05-13 06:36 | Observation (INO) ==
--- NOTE | 2023-04-13 13:26 | PAT Medication Instructions ---
Medication Instructions Date of Service April 13, 2023 Home Medications Medication Instructions Recorded lansoprazole 15 mg capsule,delayed 15 mg PO QAM #90 caps 04/06/23 release (Prevacid 24Hr) triamterene 37.5 1 tab PO QAM #90 tabs 04/06/23 mg-hydrochlorothiazide 25 mg tablet aspirin 81 mg tablet,delayed release (Aspir-Low) 81 mg PO QAM acetaminophen 325 mg tablet 325 mg PO UD PRN amlodipine 5 mg tablet 5 mg PO QAM cholecalciferol (vitamin D3) 50 mcg (2,000 unit) tablet 50 mcg PO QAM potassium chloride 10 mEq capsule,extended release 20 meq PO QAM prednisone 5 mg tablet 5 mg PO QAM lansoprazole 15 mg capsule,delayed release (Prevacid 24Hr) 15 mg PO QAM triamterene 37.5 mg-hydrochlorothiazide 25 mg tablet 1 tab PO QAM Continue as directed acetaminophen 325 mg tablet 325 mg PO UD PRN(if needed) ASK your prescriber and surgeon aspirin 81 mg tablet,delayed release (Aspir-Low) 81 mg PO QAM DO NOT take the morning of surgery cholecalciferol (vitamin D3) 50 mcg (2,000 unit) tablet 50 mcg PO QAM potassium chloride 10 mEq capsule,extended release 20 meq PO QAM triamterene 37.5 mg-hydrochlorothiazide 25 mg tablet 1 tab PO QAM Take morning of surgery With a small sip of water, OTHERWISE NOTHING TO EAT OR DRINK AFTER MIDNIGHT: amlodipine 5 mg tablet 5 mg PO QAM prednisone 5 mg tablet 5 mg PO QAM lansoprazole 15 mg capsule,delayed release (Prevacid 24Hr) 15 mg PO QAM Other Notes If you have any questions please call us at [phone] or [phone] or [phone] or [phone]
--- NOTE | 2023-04-19 11:32 | Anesthesiology Consultation ---
Date of Service April 19, 2023 Assessment & Plan (1) Encounter for pre-operative examination: Chart Review Chart Review: Acceptable Risk for Surgery and Patient seen in Pre Admission Testing - Patient is NOT an ideal OPJ candidate (currently 23 hour obs) - Check BSG AM DOS Per PAT appt on 04/19/23, no recent illness/disease exposures, illness related symptoms, or recent illness/disease positive tests. Will leave to surgeon's discretion if preop Covid testing needed Patient seen by PCP 04/20/23= seen for follow up on abnormal preop labs. Mild anemia- PCP reassured patient she can proceed with orthopedic procedure. Will check H&H after procedure and do follow up if needed. CKD- reviewed prior renal function tests- hx of low GFR on several occasions. Will continue to monitor and use caution with meds/contrast agents. Mild aortic stenosis- most recent ECHO reviewed- no intervention needed at this time. Lymphedema- encouraged to follow through with lymphedema treatment. Elevated A1C- patient doesn't eat much break or pasta. Does eat candy throughout the day. L-L2 decompression, L3-L5 decompression and fusion 05/17/22= Done under GA with Grade 1 view with Akers #2. ETT #7.5. Teaching & Discussion Pre-Anesthesia Teaching/Discussion Notes: Instructed NPO after midnight before surgery,except medications with 15 cc of water. Medication instructions provided according to the PAT guidelines. History Surgery Operation Date: 05/13/23 11:15 Proposed Procedures p Right Total Shoulder Arthroplasty Reverse - Bob Corea, Height/Weight Height: 5 ft Weight: 76.4 kg Allergies Allergy/AdvReac Type Severity Reaction Status Date / Time azithromycin [From Zithromax] Allergy Mild DIARRHEA,NAUSEA Verified 04/20/23 14:02 VOMITING ABD PAIN clopidogrel Allergy Mild ABDOMINAL Verified 04/20/23 14:02 PAIN/SICK TO STOMACH lisinopril Allergy Mild HANDS WENT Verified 04/20/23 14:02 NUMB nickel Allergy Mild SKIN Verified 04/20/23 14:02 IRRITATION WITH EARRINGS azathioprine Allergy Unknown UNKNOWN OF Verified 04/20/23 14:02 REACTION egg AdvReac Severe urgent Verified 04/20/23 14:02 diarrhea Sulfa (Sulfonamide AdvReac Mild Nausea Verified 04/20/23 14:02 Antibiotics) Medications Home Medications Medication Instructions Recorded Confirmed Last Taken aspirin 81 mg tablet,delayed 81 mg PO QAM 11/24/17 04/20/23 05/10/22 07:00 release (Aspir-Low) acetaminophen 325 mg tablet 325 mg PO UD PRN Pain 04/05/23 04/20/23 Unknown amlodipine 5 mg tablet 5 mg PO QAM 04/05/23 04/20/23 Unknown cholecalciferol (vitamin D3) 50 50 mcg PO QAM 04/05/23 04/20/23 Unknown mcg (2,000 unit) tablet potassium chloride 10 mEq 20 meq PO QAM 04/05/23 04/20/23 Unknown capsule,extended release prednisone 5 mg tablet 5 mg PO QAM 04/05/23 04/20/23 Unknown lansoprazole 15 mg capsule,delayed 15 mg PO QAM #90 caps 04/06/23 04/20/23 Unknown release (Prevacid 24Hr) triamterene 37.5 1 tab PO QAM #90 tabs 04/06/23 04/20/23 Unknown mg-hydrochlorothiazide 25 mg tablet Additional Notes: Takes Prednisone for arthritis per patient Past Medical History Medical History (Updated 04/20/23 @ 19:16 by Ester Brink MD) Aortic stenosis, mild Mild aortic stenosis (KINA 1.3cm2, max PG 21.9mmhg; AV max velocity 2.337m/s) per 03/04/23 ECHO CKD (chronic kidney disease) stage 3, GFR 30-59 ml/min Edema, peripheral Since foot surgery - mild and stable- followed with ortho- currently monitoring GERD (gastroesophageal reflux disease) controlled, stable per pt Hyperglycemia Hgb A1C 6.9 at PAT appt 04/19/23 Hyperlipidemia No meds Hypertension controlled, stable per pt Rotator cuff tear R with associated paresthesias if in certain positions for extended intervals Exercise / Class Metabolic Activity III < 4 Walking/Shop/Light housework (no chest pain or SOB with flat surface ambulation ) Past Family History Family History Sister Lung cancer Brother Congestive heart failure Father Hepatic cirrhosis Other No family history of adverse response to anesthesia Denies family history of Ovarian cancer Prostate cancer Myocardial infarction Breast cancer Colorectal cancer Past Surgical History Surgical History History of appendectomy (1963) History of bunionectomy RT/LEFT History of carpal tunnel release RT/LEFT History of cataract surgery RT/LEFT History of section History of cholecystectomy (1971) History of hysterectomy (2011) partial History of lumbar spinal fusion 05/17/22 @ [facility] History of tooth extraction History of total hip arthroplasty RT HIP (05/19/17): SAB L3-L4, 1 attempt Hx of colonoscopy Hx of LASIK Status post right foot surgery Status post total shoulder arthroplasty Left reverse TSA (12/08/2021): LMA#4 (igel) + PNB at [facility]. No issues noted per post-op anesthesia progress note. Past Anesthesia History No Hx of Anesthesia Complications and No Family Hx of Anesthesia Complications History of PONV No Hx of PONV and No Hx of Motion Sickness Social History Smoking Status: Never smoker Do You Dip or Chew Tobacco: No Hx Alcohol Use: Yes alcohol intake frequency: holidays/special occasions only Hx Substance Use: No substance use type: does not use Review of Systems - Mild weakness left LE - improving/chronic since lumbar surgery 05/2022 - Chronic sinus drainage/post nasal drip- mild and stable - Hx of seizures during childhood - has since resolved- no issues since childhood- no medications needed Patient denies chest pain, shortness of breath, dyspnea on exertion, cough, wheezing, palpitations. No hx of stroke, MN, apnea/snoring. No hx of blood clots or blood transfusions Physical Exam Vital Signs VITALS BP 137/73 P 91 TEMP 98.6 SP02 95% RESP 16 Constitutional no acute distress ENMT Mouth: no TMJ clicking Thyromental Distance: > or= 3.5 Finger Breadths (3.5) Mallampati Class: III Full upper denture Missing bottom molars Neck + limited neck extension (mild) Respiratory normal respiratory effort; no respiratory distress Auscultation: lungs clear to auscultation bilaterally; no wheezes Cardiovascular Rate/Rhythm: regular rate and regular rhythm Heart Sounds: + murmur (II-III/ murmur ) Vessels: no carotid bruit Extra beats Musculoskeletal Spine: no pain with cervical ROM Extremities: extremities normal to inspection Psychiatric Orientation: alert Lab Results Anesthesia Preop Results Results Anesthesia Widget: WBC 9.69 K/ul (4.8-10.8) 04/19/23 Hgb 11.1 g/dl (12.0-16.0) L 04/19/23 Hct 34.7 % (37.0-47.0) L 04/19/23 Plt 217 K/uL (130-400) 04/19/23 Na 139 mmol/L (136-145) 04/19/23 K 3.7 mmol/L (3.5-5.1) 04/19/23 Cl 101 mmol/L (98-107) 04/19/23 CO2 29 mmol/L (21-32) 04/19/23 BUN 24 mg/dl (6-23) H 04/19/23 Creat 0.86 mg/dl (0.6-1.2) 04/19/23 Glucose Level 133 mg/dl (70-99(Fasting)) H 04/19/23 PT 10.8 Seconds (9.0-12.0) 04/19/23 PTT 24 Seconds (21-31) 04/19/23 INR 1.0 (0.9-1.1) 04/19/23 HA1c 6.9 % (4.5-5.6) H 04/19/23 Blood Type A Positive 04/19/23 Antibody Screen NEGATIVE 04/19/23 Testing Laboratory Results - Mild anemia- stable since 05/2022- will inform surgeon's office and send FYI to PCP - Elevated Hgb A1C - will send FYI to PCP and surgeon's office Electrocardiogram Date: 04/19/23 SR with PACs at 73bpm Minimal voltage criteria for LVH, may be normal variant (R in aVL) When compared to EKG from May 03, 2022- no significant change was found per cardio Chest X-Ray Date: 04/19/23 Findings: + NAD and + cardiomegaly FINDINGS: Cardiomediastinal and hilar silhouettes are within normal limits. No pneumothorax, pleural effusion, airspace consolidation or pulmonary edema. Degenerative changes of the spine and right shoulder. Left shoulder arthroplasty. Partially imaged lumbar spinal fusion hardware. IMPRESSION: Cardiomegaly without acute process. Echocardiogram Date: 03/04/23 EF: 60-65% LV Function: normal RWMA: + none Other Findings: + LVH (mild/concentric) and + diastolic dysfunction (Grade I ) Valvular Disease: + MR (Mild) Mild valvular aortic stenosis. KINA 1.3cm2; AV max velocity 2.337 m/s; AV max PG 21.9mmHg RVSP is elevated at 30-34mmHg Mildly dilated ascending aorta
[~2023-05-13 06:36] MED LIST changes: -ACETAMINOPHEN 500 MG TAB PO SCH; +BUPIVACAINE 0.5 % 5 MG/1 ML PF 10ML VIAL ONE; -CeleBREX 200 MG CAP PO SCH; -GABAPENTIN 300 MG CAP PO SCH; -LR 15ML/HR IV SCH; -ceFAZolin 2000MG 2,000 MG/15 ML SYR IV SCH
--- NOTE | 2023-05-13 06:41 | History & Physical Bridge Note ---
Date of Service May 13, 2023 History & Physical Bridge Note I have examined the patient, reviewed the History & Physical and in the interval since the performance of the History & Physical I have noted the following changes of clinical significance: no changes noted
[2023-05-13] MEDS ORDERED: PROPOFOL IV EMULSION 10 MG/ML 20 ML VIAL IV ONE (06:49)
[2023-05-13] MEDS ORDERED: LIDOCAINE 2% 2 ML VIAL/AMP(20MG/ML) INFIL ONE (06:49)
[2023-05-13] MEDS ORDERED: ONDANSETRON INJ 2 MG/ML 2 ML VIAL ONE (06:49)
[2023-05-13] MEDS ORDERED: DEXAMETHASONE SOD INJ 4 MG/ML VIAL ONE (06:49)
[2023-05-13] MEDS ORDERED: MIDAZOLAM HCL 1 MG/ML 2ML VIAL ONE (06:50)
[2023-05-13] MEDS ORDERED: fentaNYL citrate PF 100 MCG/2 ML VIAL ONE (06:50)
[2023-05-13] MEDS: LR 15ML/HR IV SCH (07:00)
[2023-05-13] MEDS: ACETAMINOPHEN 500 MG TAB PO SCH ×2 (07:11→13:19)
[2023-05-13] MEDS: FAMOTIDINE 20 MG TAB PO SCH (07:11)
[2023-05-13] MEDS: dexAMETHasone**PF** 10 MG/ML VIAL IV SCH (07:11)
[2023-05-13] MEDS: GABAPENTIN 300 MG CAP PO SCH (07:11)
[2023-05-13] MEDS: LR 60ML/HR IV SCH (07:12)
[2023-05-13] MEDS ORDERED: ONDANSETRON INJ 2 MG/ML 2 ML VIAL IV PRN ×2 (07:28→10:34)
[2023-05-13] MEDS ORDERED: ATROPINE SULFATE 0.1 MG/ML 10ML SYR IV PRN (07:28)
[2023-05-13] MEDS ORDERED: ePHEDrine sulfate 50 MG/ML AMP IV PRN (07:28)
[2023-05-13] MEDS: TRANEXAMIC ACID 1,000 MG **IV Pre-op IV SCH (07:43)
[2023-05-13] MEDS: ceFAZolin 2000MG 2,000 MG/15 ML SYR IV SCH ×2 (07:55→15:25)
[2023-05-13] MEDS ORDERED: ePHEDrine sulfate 50 MG/5 ML SYR ONE (08:21)
[2023-05-13] MEDS ORDERED: PHENYLEPHRINE 100MCG/ML 10ML SYR IV ONE (08:21)
[2023-05-13] MEDS: TRANEXAMIC ACID 1,000 MG **IV Intra-op IV SCH (08:55)
[2023-05-13] MEDS: ROPIV 0.5% 246mg, Ketorolac 30mg, EPINEPHrine 0.5mg in NSS INFIL SCH (08:59)
[2023-05-13] MEDS: ORTHO JOINT ANESTHETIC ONE (09:00)
--- NOTE | 2023-05-13 09:00 | Operative Report ---
PG Post Operative Report Pre & Post Diagnosis Operation Date: 05/13/23 08:00 Pre-Op Diagnosis: Rotator cuff arthropathy of right shoulder Post-Op Diagnosis: Rotator cuff arthropathy of right shoulder I identified the patient and participated in the time-out.: Yes Procedure Operation Date: 05/13/23 08:00 Actual Procedures p Right Reverse Total Shoulder Arthroplasty(Right) - Bob Corea DO Surgeon Bob Corea DO Sequins Stringer Bob Albrecht PA-C Estimated Blood Loss 100 Findings Consistent with Post-Op Diagnosis Specimens Right humeral head Description of Procedure Implants used: I used a Biomet Comprehensive reverse total shoulder arthroplasty system with a size 10 press fit micro humeral stem, a +6 offset humeral tray and a standard humeral bearing, a 25 mm small augment baseplate with a 6.5 mm central screw and superior and inferior locking screws, and a size 36 eccentric glenosphere. Balbina arrived at [facility] for the above procedure. She was seen in the preoperative holding area and the operative extremity was identified and signed. She was given a preoperative antibiotic, TXA, and an interscalene nerve block. She was taken back to the operating room, laid on table in supine position, and put under general anesthesia. She was then put into the beachchair position. The shoulder was then prepped and draped in sterile fashion. A timeout was done and the patient and the operative extremity was properly identified. A deltopectoral approach was used. Dissection was taken down through the fascia and the deltoid was retracted laterally and the conjoined tendon was retracted medially. The anterior shoulder was exposed. The biceps tendon was chronically torn. The subscapularis was then directly released off the lesser tuberosity with a peel technique. The inferior capsule was released and the humeral head was dislocated. A canal finding reamer was sent down the center of the humeral canal. Sequential reaming up to a size 10 reamer was done. Off that reamer, a proximal humeral resection guide was placed. The proximal humerus was resected at 135 of inclination and 25 of retroversion. Osteophytes were then removed and the glenoid was exposed. Time was spent doing a complete capsular and labral release. The glenoid guide was then placed in the inferior aspect of the glenoid. A 3.2 mm Steinmann pin was then placed into the glenoid vault at 10 of inclination. The glenoid baseplate was then reamed. The final size 25 mm small augment baseplate was then impacted in the place. A 6.5 mm central screw was then placed followed by superior and inferior locking screws. A 36 mm eccentric glenosphere was then impacted into place. Surrounding soft tissues were then injected with 100 cc an orthopedic pain control cocktail. The proximal humerus was then exposed. Sequential broaching of the humerus up to a size 10 broach was done. Off that broach a +6 offset humeral tray was trialed. The shoulder was then reduced, brought through a full range of motion, and felt to be stable. The shoulder was then dislocated and the broach was removed. The final size 10 micro press-fit humeral stem was then impacted into place. A standard humeral bearing was then snapped onto a +6 offset humeral tray. The humeral tray was then impacted onto the humeral stem. The shoulder was once again reduced, brought through a full range of motion, and felt to be stable. The subscapularis was poor quality and unable to be repaired. A dilute betadyne lavage was then done for 3 minutes. The joint was then irrigated with normal saline solution. Hemostasis was obtained. The interval was closed with 2-0 Vicryl suture. The skin was then closed with 2-0 Vicryl and xochitl. A Silverlon dressing was placed and the arm was rested in a regular arm sling. She was then extubated and transferred to a hospital bed. She taken to the postanesthesia care unit in stable condition. She tolerated the procedure well. Bob Albrecht PA-C, was present for the entire procedure. He was critical for patient positioning, prepping, draping, retraction exposure, wound closure and application of sterile dressing. I attest to the content of the Intraoperative Record and any orders documented therein. Any exceptions are noted below.
--- NOTE | 2023-05-13 09:30 | XRay Report ---
RIGHT SHOULDER 2 VIEWS CLINICAL HISTORY: Postoperative examination. FINDINGS: 2 portable views of the right shoulder are compared to study dated 04/19/2023. The skeletal structures are osteopenic. A right shoulder arthroplasty is in near anatomic alignment. No fracture i s seen. Degenerative change is noted at the acromioclavicular joint. Skin clips, subcutaneous gas, an d soft tissue swelling overlying the right shoulder are expected postsurgical changes. The visualized right lung parenchyma appears clear noting dependent atelectasis. IMPRESSION: Expected postoperative findings status post right shoulder arthroplasty. No fracture is s een. Electronically signed by: Umang Alvarez M.D. 05/13/2023 9:29 AM
[2023-05-13] MEDS: fentaNYL citrate PF 100 MCG/2 ML VIAL IV PRN (10:12)
[2023-05-13] MEDS ORDERED: NALOXONE HCL 0.4 MG/1 ML VIAL/CARP IV PRN (10:34)
[2023-05-13] MEDS ORDERED: METOCLOPRAMIDE HCL INJ 5 MG/ML 2 ML VIAL IV PRN (10:34)
[2023-05-13] MEDS ORDERED: MAGNESIUM HYDROXIDE SUSP 30 ML UDC PO PRN (10:34)
[2023-05-13] MEDS ORDERED: bisacodyL 10 MG SUPP PR PRN (10:34)
[2023-05-13] MEDS ORDERED: HYDROmorphone INJ 0.5 MG/0.5 ML SYR IV PRN (10:34)
[2023-05-13] MEDS: SODIUM CHLORIDE 0.9% 1,000 ML IV SCH (11:02)
--- NOTE | 2023-05-13 11:18 | Anesthesiology Progress Note ---
Date of Service May 13, 2023 Anesthesia Post Procedure Vital Signs Vital Signs: Temp Pulse Pulse Resp BP BP Pulse Ox 05/13/23 11:04 98.2 F 87 16 132/73 94 05/13/23 10:34 97.5 F L 82 16 149/74 H 93 05/13/23 10:15 85 18 141/81 H 95 05/13/23 09:55 97.7 F 83 20 138/86 95 05/13/23 09:45 89 16 137/75 92 05/13/23 09:35 82 18 158/81 H 96 05/13/23 09:25 90 18 154/80 H 97 05/13/23 09:17 96.8 F L 87 16 162/101 H 98 05/13/23 06:55 98.2 F 96 H 20 178/89 H 98 O2 Del Method O2 Flow Rate 05/13/23 11:04 Nasal Cannula 3 05/13/23 10:34 Nasal Cannula 3 05/13/23 10:15 Oxymask 2 05/13/23 09:55 Oxymask 2 05/13/23 09:45 Oxymask 3 05/13/23 09:35 Oxymask 6 05/13/23 09:25 Oxymask 6 05/13/23 09:17 Oxymask 8 05/13/23 06:55 Room Air Pain Intensity Right Shoulder: Pain Intensity: 3 Transfer of Care Handoff Completed per policy Notes Mental Status: alert / awake / arousable and participated in evaluation Patient Amnestic to Procedure: Yes Nausea / Vomiting: adequately controlled Pain: adequately controlled Airway Patency, RR, SpO2: stable & adequate BP & HR: stable & adequate Hydration State: stable & adequate Anesthetic Complications: no major complications apparent and Pt Satisfied with anesthetic care
[2023-05-13] MEDS: oxyCODONE HCL IR 5 MG TAB (IMMEDIATE RELEASE) PO PRN (17:02)
[2023-05-13] MEDS: DOCUSATE SODIUM 100 MG CAP PO SCH (21:10)
[2023-05-13] MEDS: SENNA 8.6 MG TAB PO SCH (21:10)
--- NOTE | 2023-05-14 07:32 | Discharge Summary ---
Date of Service May 14, 2023 Principal Diagnosis Same as "Discharge Diagnosis" noted below under Discharge Instructions. Discharge Exam On physical examination the right shoulder, the dressing is clean and dry. She is wearing her sling as instructed. She has active motion of her hand and wrist.. Discharge Data Procedures Performed Operation Date: 05/13/23 08:00 Actual Procedures p Right Reverse Total Shoulder Arthroplasty(Right) - Bob Corea DO Ordered Studies 05/13/23 05:00 US - OR guided needle placemen Routine Hospital Course (1) Status post reverse total replacement of right shoulder: On May 13, 2023 Balbina arrived at [facility] and underwent a right reverse shoulder replacement without complication. She had a general anesthetic and a right interscalene nerve block. Postoperatively she was placed in a sling and transferred to the general orthopedic floors. Her hospital course was uneventful. On postop day #1, her vital signs were stable and her pain was well-controlled. She was able to participate well with physical therapy doing ambulation and range of motion exercises. She was then discharged home. She will follow-up orthopedics in 2 weeks. PG Care Time/CCT Total # of Minutes Spent Total Time Spent with Patient: Total time spent is greater than 50% in coordination of care (as documented) at patient's floor/unit and/or counseling patient: Discharge Plan Discharge Items Patient Disposition: Home - Self-Care Reason For Visit: DJD Shoulder Right Discharge Diagnosis: Right shoulder replacement Activity: Per Instructions section Non-emergency contact: Surgeon Call non-emergency contact if: your wound has increased redness and your wound has increased drainage Follow-up/Referrals: Ester Brink MD [Primary Care Provider] - Diet: Regular Addtl Attending Provider Instructions: Activity and Therapy Recommendations: * If you are using [facility] then therapy will be provided at your home until they feel you have accomplished all of your goals. * If you are using [facility] then Physical Therapy will be provided until they feel you are ready to start Outpatient Physical Therapy. * If you are not using home therapy then Outpatient Physical Therapy should start about 3-5 days from your day of surgery. Therapy will last about 8-12 weeks * Wear your sling for 3 weeks, unless otherwise instructed. You may remove your sling to shower and to dress, but otherwise, you should be in your sling at all times, including while sleeping * The shoulder replacement is very stable and you can use your hand while in the sling * You were shown a series of exercises in the hospital. Do these exercises daily including the exercises you were shown in physical therapy. Medications: * Narcotic You will likely be sent home from the hospital with a prescription for the narcotic pain medication that worked best throughout your stay. * Cefadroxil -take the antibiotic twice a day for 10 days to help prevent infection. * Other medications may be prescribed for specific circumstances. If you have any questions, please call the office at . * Resume previous home medications unless otherwise instructed Dressing Care: Leave the Silverlon dressing in place for 7 days. After 7 days you may remove the dressing. If the incision is not draining then you may leave the xochitl open to air. If there is a little bit of drainage or if the xochitl are getting stuck on your clothing then cover the incision with a dry dressing. The xochitl will be removed at your 2 week follow-up appointment. Showering: You may shower with the Silverlon dressing in place. Do not let the shower spray hit the dressing directly. Pat the Silverlon dressing dry. If the dressing becomes wet underneath, then simply remove the dressing. Keep the incision dry until you are 7 days out from the day of surgery. After 7 days you may remove the Silverlon dressing and shower with the xochitl exposed. Let soapy water run over the xochitl and pat them dry. Do not scrub or soak the incision. Things To Watch For: * Drainage from the incision site that occurs more than one week after your surgery. * Increased redness at the incision site. * Fever above 102 degrees Fahrenheit. * Unusual chest pain or shortness of breath. * Call [facility] at with any of the above problems Follow-Up Visit: Follow-up with Dr. Corea's PA (Bob Albrecht) 2-3 weeks after your day of surgery. He will remove your xochitl and answer any questions. If you have any additional questions or concerns, Dr Corea is usually in the office at the same time and will be available An appointment was probably scheduled when you signed-up for surgery in the office. If you have any questions call More detailed instructions as well as Frequently Asked Questions were provided in a folder by our office when you signed-up for surgery. Please review these instructions when you get home. If you have any further questions or concerns, please feel free to call the office at [phone] Pending Studies at Discharge: No Stand-Alone Forms: My [facility], Smoking Cessation Medications and DC Order Prescriptions: New oxycodone 5 mg Tablet 5 mg PO Q4H PRN (Reason: pain) Qty: 30 0RF cefadroxil 500 mg capsule 500 mg PO BID 10 Days Qty: 20 0RF Continued triamterene-hydrochlorothiazid 37.5-25 mg tablet 1 tab PO QAM Qty: 90 1RF Rx Instructions: TAKE 1 TABLET DAILY lansoprazole [Prevacid 24Hr] 15 mg capsule,delayed release(DR/EC) 15 mg PO QAM Qty: 90 1RF Rx Instructions: TAKE 1 CAPSULE DAILY aspirin [Aspir-Low] 81 mg Tablet,Delayed Release (Dr/Ec) 81 mg PO QAM potassium chloride 10 mEq capsule, extended release 20 meq PO QAM prednisone 5 mg tablet 5 mg PO QAM Rx Instructions: TAKE 1 TABLET EVERY MORNING amlodipine 5 mg tablet 5 mg PO QAM Rx Instructions: TAKE 1 TABLET DAILY cholecalciferol (vitamin D3) 50 mcg (2,000 unit) tablet 50 mcg PO QAM acetaminophen 325 mg Tablet 325 mg PO UD PRN (Reason: Pain) Discharge Orders: Discharge Order (Routine); Ordered 05/14/23 Ordered By: Bob Corea Admission Data Admit Date/Time: 05/13/23 09:19 Attending Provider: Bob Corea Admit Provider: Bob Corea Primary Care Provider: Ester Brink
--- NOTE | 2023-05-14 07:32 | Orthopedic Progress Note ---
Date of Service May 14, 2023 Assessment & Plan (1) Status post reverse total replacement of right shoulder: Overall she is doing very well. She is not having much pain in the right shoulder. She will be seen by physical therapy today for ambulation and range of motion exercises. She can be discharged home later today. She will follow- up with orthopedics in 2 weeks. Simón Mortensen was seen and examined at bedside this morning. Overall she is doing very well. She is not having much pain in the right shoulder. She was able to get some sleep last night. She has no complaints.. Review of Systems All systems reviewed & are unremarkable except as noted in HPI & below. Physical Exam On physical examination the right shoulder, the dressing is clean and dry. She is wearing her sling as instructed. She has active motion of her hand and wrist.. Results & Data Results & Data Laboratory Results . Diagnostic Findings Postoperative x-rays of the right shoulder show the prosthesis to be in anatomic alignment without any evidence of fracture complication, or loosening.. PG Care Time/CCT Total # of Minutes Spent Total Time Spent with Patient: Total time spent is greater than 50% in coordination of care (as documented) at patient's floor/unit and/or counseling patient: Coding Level of Care Code 97520 Post Operative Follow-Up Diagnoses Status post reverse total replacement of right shoulder Z96.611
[2023-05-14] MEDS: MULTIVITAMIN TAB PO SCH (08:01)
[2023-05-14] MEDS: TRIAMTERENE/HCTZ 37.5/25MG TAB PO SCH (08:01)
[2023-05-14] MEDS: predniSONE 5 MG TAB PO SCH (08:01)
[2023-05-14] MEDS: ASPIRIN 81 MG ECTAB PO SCH (08:01)
[2023-05-14] MEDS: amLODIPine BESYLATE 5 MG TAB PO SCH (08:01)
[2023-05-14] MEDS: PANTOprazole 40 MG TAB PO SCH (08:01)
[2023-05-14] MEDS: POTASSIUM CHLORIDE CRTAB 20 MEQ TABCR PO SCH (08:01)
[2023-05-14] MEDS: dexAMETHasone 4 MG TAB PO SCH (08:02)
== END 2023-05-14 12:47 | disposition home or self-care (01) ==
LOC: 3E 06:36 → ASU 06:36